=== PATIENT | female | born 1950 | race Asian ===

== ENCOUNTER 2016-10-27 18:22 | Inpatient (IN) | payer MEDICARE, OTHER ==
[~2016-10-27] VITALS: Ht 162.6 cm; Wt 74.0 kg
[2016-10-27 19:05] LABS: CONDITION Y; Hematocrit 36.6 % (36.0-46.0); Hemoglobin 12.4 g/dL (12.2-16.2); Mean Corpuscular Hemoglobin 33.7 pg (28.0-32.0); Mean Corpuscular Hgb Conc. 33.8 g/dL (32.0-36.0); Mean Corpuscular Volume 99.7 fL (80.0-100.0); Platelet Count (auto) 267 10^3/uL (140-450); Red Cell Distribution Width 15.4 % (11.6-16.0); SUSPECT SEE PRINTOUT; White Blood Cell 11.2 10^3/uL (4.4-10.8)
[2016-10-27 19:30] LABS: Metamyelocytes % 0; Myelocytes % 0; Promyelocytes % 0; Reactive Lymphocytes 0
[2016-10-27 19:39] LABS: Albumin 2.1 g/dL (3.4-5.0); Anion Gap 14 (5-15); Aspartate Aminotransferase 95 U/L (15-37); Blood Urea Nitrogen 22 mg/dL (7-18); Calcium 9.3 mg/dL (8.5-10.1); Carbon Dioxide 22 mmol/L (21-32); Chloride 110 mmol/L (98-107); GFR African American 185 mL/min; GFR Non-African American 153 mL/min; Glucose 107 mg/dL (74-106); Potassium 3.1 mmol/L (3.5-5.1); Sodium 146 mmol/L (136-145)
[2016-10-27 19:44] LABS: Alkaline Phosphatase 96 U/L (45-117); Bilirubin, Total 1.1 mg/dL (0.2-1.0); Total Protein 6.9 g/dL (6.4-8.2)
[2016-10-27] MEDS ORDERED: ALBUTEROL SULF 2.5 MG/0.5ML(0.5%) NEB SOLN NEB ONE (19:45)
[2016-10-27] MEDS ORDERED: SODIUM CHLORIDE 0.9% 1,000 ML IV ONE (19:45)
[2016-10-27] MEDS ORDERED: IPRATROPIUM BROM 0.5 MG/2.5ML INH SOL NEB ONE (19:45)
[2016-10-27 20:09] LABS: Platelet Estimate Adequate
[2016-10-27 21:07] LABS: Urine Bilirubin Negative (Negative); Urine Color Yellow (Yellow); Urine Glucose Normal (Normal); Urine Ketone TRACE (Negative); Urine Mucus FEW (None Seen); Urine Nitrite Negative (Negative); Urine RBC 11 /hpf (0 - 4); Urine Squamous Epithelial Cell FEW /hpf (<5)
[2016-10-27 21:09] LABS: Urine Blood 1+ /uL (Negative)
[2016-10-27 21:15] LABS: B-Type Natriuretic Peptide 197.05 pg/mL (0-100)
[2016-10-27 21:22] LABS: Temperature: 23.1 C (20.0-25.0)
[2016-10-27] MEDS ORDERED: cefTRIAXone 1GM/50ML D5W 50 ML IV ONE (21:45)
[2016-10-27] MEDS ORDERED: FUROSEMIDE 20 MG/2 ML VIAL IV ONE (21:45)
[2016-10-27 21:53] LABS: INR 0.96 (0.9-1.15); Partial Thromboplastin Time 29.3 sec (22.64-33.71); Prothrombin Time 10.5 sec (9.37-12.3)
[2016-10-27] MEDS ORDERED: IOHEXOL 350 MG/ML 100ML IJ ONE (23:35)
[2016-10-27] MEDS ORDERED: ACETAMINOPHEN 650 MG RECT SUPP PR ONE (23:38)
[2016-10-27] MEDS: ACETAMINOPHEN 650 MG RECT SUPP PR PRN (23:43)
[2016-10-27] MEDS ORDERED: ENOXAPARIN SOD 80 MG/0.8ML SYRINGE SC ONE (23:45)
[2016-10-27 23:51] LABS: Allen Test Yes; Base Excess -0.4 mmol/L (-2.0-2.0); Blood 02Sat 94.2 % (96-100); Blood COHb 0.4 % (0.5-1.5); Blood MetHb 0.1 % (0.0-1.5); HCO3 21.9 mmol/L (22-26.0); HHb 5.8 % (0.0-5.0); MODE NASAL CANNULA; O2Hb 93.7 % (94.0-97.0); PCO2 29.4 mmHg (35.0-45.0); PCO2(T) 31.7 mmHg (35.0-45.0); PO2 70.5 mmHg (80.0-100.0); PO2(T) 79.1 mmHg (80.0-100.0); Sample Type Arterial
[2016-10-28] VITALS (39 sets, daily range): BP systolic 80–161; BP diastolic 35–88
[2016-10-28] MEDS ORDERED: ONDANSETRON HCL 4 MG/2 ML VIAL IV PRN (01:00)
[2016-10-28] MEDS ORDERED: NITROGLYCERIN 0.4 MG SL TAB SL PRN (01:00)
[2016-10-28] MEDS ORDERED: MORPHINE SULF INJ 2 MG/ML SYRINGE 1ML IV PRN (01:00)
[2016-10-28] MEDS ORDERED: PIPERACILLIN-TAZOB 3.375GM 100 ML IV ONE (01:00)
[2016-10-28] MEDS: VANCOMYCIN 1GM/250ML D5W 250 ML IV SCH ×2 (02:15→13:00)
[2016-10-28] MEDS: POTASSIUM CHL 20MEQ/100ML 100 ML IV SCH ×2 (02:15→04:00)
[2016-10-28] MEDS: PIPERACILLIN-TAZOB 3.375GM 100 ML IV SCH ×2 (07:30→12:11)
[2016-10-28] MEDS ORDERED: ENOXAPARIN SOD 40 MG/0.4 ML SYRINGE SC SCH (10:00)
[2016-10-28] MEDS ORDERED: FAMOTIDINE 20 MG TAB PO SCH (10:00)
[2016-10-28] MEDS ORDERED: PANTOPRAZOLE SODIUM 40 MG/10 ML VIAL IV SCH (12:30)
[2016-10-28 13:28] LABS: Albumin 1.7 g/dL (3.4-5.0); Bilirubin, Total 1.3 mg/dL (0.2-1.0); Lactic Acid w/Reflex 2.2 mmol/L (0.4-2.0); Total Protein 6.3 g/dL (6.4-8.2)
[2016-10-28 13:32] LABS: Potassium 2.8 mmol/L (3.5-5.1)
[2016-10-28] MEDS ORDERED: POTASSIUM CHL 20MEQ/100ML 100 ML IV SCH (13:45)
[2016-10-28] MEDS ORDERED: ETOMIDATE (2MG/ML) 20ML VIAL IV ONE (13:58)
[2016-10-28] MEDS ORDERED: SUCCINYLCHOLINE CHLORIDE 20 MG/ML 10ML VIAL IV ONE (13:58)
[2016-10-28 14:01] LABS: REFLEX LACTIC ACID YES OR NO YES
[2016-10-28 14:09] LABS: Base Excess 0.5 mmol/L (-2.0-2.0); Blood 02Sat 92.4 % (96-100); Blood COHb 0.3 % (0.5-1.5); Blood MetHb 0.2 % (0.0-1.5); HCO3 21.8 mmol/L (22-26.0); HHb 7.6 % (0.0-5.0); MODE NASAL CANNULA; O2Hb 91.9 % (94.0-97.0); PCO2 25.9 mmHg (35.0-45.0); PCO2(T) 25.9 mmHg (35.0-45.0); PO2 61.2 mmHg (80.0-100.0); PO2(T) 61.2 mmHg (80.0-100.0); Sample Type Arterial; pH 7.544 (7.350-7.450)
[2016-10-28] MEDS ORDERED: POTASSIUM CHLORIDE 40 MEQ, LIDOCAINE 1% (LOCAL ANESTH.) 4 ML in SODIUM CHL 0.9% 250 ML IV ONE (14:30)
[2016-10-28] MEDS: PROPOFOL 100 ML IV SCH (14:34)
[2016-10-28] MEDS: MIDAZOLAM DRIP 100 mg/100mL NS 100 ML IV SCH (14:34)
[2016-10-28] MEDS ORDERED: MIDAZOLAM DRIP 100 mg/100mL NS 100 ML IV ONE (14:39)
[2016-10-28] MEDS ORDERED: PANTOPRAZOLE SODIUM 40 MG/10 ML VIAL IV ONE (14:45)
[2016-10-28] MEDS ORDERED: MIDAZOLAM DRIP 100 mg/100mL NS 100 ML IV SCH (14:48)
[2016-10-28] MEDS ORDERED: PROPOFOL 100 ML IV SCH (14:48)
[2016-10-28] MEDS ORDERED: VITAMINS A & D (TOPICAL) OINT 5GM TOP ONE (15:52)
[2016-10-28 16:52] LABS: Allen Test Yes; Base Excess -0.6 mmol/L (-2.0-2.0); Blood 02Sat 97.5 % (96-100); Blood COHb 0.3 % (0.5-1.5); Blood MetHb 0.3 % (0.0-1.5); HCO3 22.4 mmol/L (22-26.0); HHb 2.5 % (0.0-5.0); IE RATIO 1.1.6; MODE VENT - A/C; O2Hb 96.9 % (94.0-97.0); PCO2 31.8 mmHg (35.0-45.0); PCO2(T) 31.8 mmHg (35.0-45.0); PIP 20; PO2 115.2 mmHg (80.0-100.0); PO2(T) 115.2 mmHg (80.0-100.0); Sample Type Arterial; Spont Vt 463; pH 7.466 (7.350-7.450)
[2016-10-28] MEDS: ACETAMINOPHEN 325 MG TAB PO PRN (16:54)
[2016-10-28 17:45] LABS: REFLEX LACTIC ACID YES OR NO NO
[2016-10-28 18:44] LABS: Vitamin B12 > 2000 pg/mL (211-911)
[2016-10-28] MEDS: DEXAMETHASONE SOD PHOS 10MG/1ML VIAL INJ IV SCH (20:00)
[2016-10-28] MEDS ORDERED: D5W 5% 250 ML IV ONE (20:45)
[2016-10-28] MEDS ORDERED: SODIUM CHLORIDE 0.9% 1,000 ML IV SCH (21:00)
[2016-10-28] MEDS: CEFTRIAXONE SODIUM 2 GM in D5W 5% 50 ML IV SCH (21:09)
[2016-10-28] MEDS: PHENYLEPHRINE INJ 20 MG in SODIUM CHL 0.9% 250 ML IV SCH (21:41)
[2016-10-28 21:49] LABS: TUBE NUMBER TUBE 3
[2016-10-28 21:51] LABS: CSF Mononuclear Cells 3 %
[2016-10-28 22:42] LABS: Albumin 1.5 g/dL (3.4-5.0); BUN/Creatinine Ratio 33.8; Potassium 3.4 mmol/L (3.5-5.1)
[2016-10-28 22:44] LABS: Bilirubin, Total 0.9 mg/dL (0.2-1.0); Total Protein 5.9 g/dL (6.4-8.2)
[2016-10-29] VITALS (103 sets, daily range): BP systolic 91–152; BP diastolic 42–78
[2016-10-29] MEDS: VANCOMYCIN 1GM/250ML D5W 250 ML IV SCH ×3 (01:20→21:00)
[2016-10-29] MEDS: ACETAMINOPHEN 325 MG TAB PO PRN (01:20)
[2016-10-29] MEDS: DEXAMETHASONE SOD PHOS 10MG/1ML VIAL INJ IV SCH ×6 (02:00→23:42)
[2016-10-29 03:51] LABS: CONDITION Y; DEFINITIVE SEE PRINTOUT; Hematocrit 27.1 % (36.0-46.0); Hemoglobin 9.3 g/dL (12.2-16.2); Mean Corpuscular Hemoglobin 35.7 pg (28.0-32.0); Mean Corpuscular Hgb Conc. 34.4 g/dL (32.0-36.0); Mean Corpuscular Volume 103.7 fL (80.0-100.0); Mean Platelet Volume 9.9 fL (7.4-10.4); Platelet Count (auto) 199 10^3/uL (140-450); Red Cell Distribution Width 16.1 % (11.6-16.0); SUSPECT SEE PRINTOUT
[2016-10-29 04:04] LABS: Albumin 1.5 g/dL (3.4-5.0); BUN/Creatinine Ratio 40.7; Calcium 8.6 mg/dL (8.5-10.1); Potassium 3.7 mmol/L (3.5-5.1)
[2016-10-29 04:07] LABS: Bilirubin, Total 0.9 mg/dL (0.2-1.0)
[2016-10-29 04:48] LABS: Metamyelocytes % 0; Myelocytes % 0; Promyelocytes % 0; Reactive Lymphocytes 0
[2016-10-29 05:34] LABS: Anisocytosis Slight; Macrocytosis Slight; Platelet Estimate Adequate
[2016-10-29 07:36] LABS: Allen Test Yes; Base Excess 0.8 mmol/L (-2.0-2.0); Blood 02Sat 95.3 % (96-100); Blood COHb 0.3 % (0.5-1.5); Blood MetHb 0.1 % (0.0-1.5); HCO3 24.8 mmol/L (22-26.0); HHb 4.7 % (0.0-5.0); MODE VENT - A/C; O2Hb 94.9 % (94.0-97.0); PCO2 37.4 mmHg (35.0-45.0); PCO2(T) 37.4 mmHg (35.0-45.0); Sample Type Arterial
[2016-10-29] MEDS: CEFTRIAXONE SODIUM 2 GM in D5W 5% 50 ML IV SCH ×2 (09:10→21:47)
[2016-10-29] MEDS: AMPICILLIN SOD 2GM INJ 2 GM in SODIUM CHL 0.9% 100 ML IV SCH ×4 (10:10→22:41)
[2016-10-29] MEDS: PANTOPRAZOLE SODIUM 40 MG/10 ML VIAL IV SCH (10:10)
[2016-10-29] MEDS ORDERED: Fibersource Hn 1 Liter GT SCH (10:45)
[2016-10-29] MEDS ORDERED: ENOXAPARIN SOD 40 MG/0.4 ML SYRINGE SC ONE (10:45)
[2016-10-29] MEDS ORDERED: DEXTROSE (50%) 50ML SYRG IV PRN (10:45)
[2016-10-29] MEDS: SOD CHL 0.45% 1,000 ML IV SCH (12:00)
[2016-10-29] MEDS: ACCU-CHEK COMFORT CURVE STRIP VI SCH ×3 (12:20→23:43)
[2016-10-29] MEDS: InsuLIN REG 1unit/0.01ml Soln (100units/ml) SC SCH ×3 (12:25→23:43)
[2016-10-29] MEDS: PHENYLEPHRINE INJ 20 MG in SODIUM CHL 0.9% 250 ML IV SCH ×2 (14:21→22:41)
[2016-10-29] MEDS: PROPOFOL 100 ML IV SCH (14:34)
[2016-10-29] MEDS: ACETAMINOPHEN 650 MG RECT SUPP PR PRN (14:41)
[2016-10-29] MEDS: MIDAZOLAM DRIP 100 mg/100mL NS 100 ML IV SCH (15:15)
[2016-10-29] MEDS ORDERED: LIDOCAINE 1% HCL (LOCAL ANESTH.) INJ 20ML MDV ID ONE (15:45)
[2016-10-29] MEDS: MORPHINE SULF INJ 2 MG/ML SYRINGE 1ML IV PRN (16:30)
[2016-10-29] MEDS: SODIUM CHLOR 0.9% PF (SALINE LOCK) 10ML VIAL IV SCH (22:08)
[2016-10-30] VITALS (76 sets, daily range): BP systolic 104–127; BP diastolic 41–70
[2016-10-30] MEDS: SOD CHL 0.45% 1,000 ML IV SCH ×2 (00:23→13:25)
[2016-10-30] MEDS: AMPICILLIN SOD 2GM INJ 2 GM in SODIUM CHL 0.9% 100 ML IV SCH ×3 (02:22→10:06)
[2016-10-30 03:54] LABS: CONDITION Y; DEFINITIVE SEE PRINTOUT; Hematocrit 25.6 % (36.0-46.0); Hemoglobin 8.8 g/dL (12.2-16.2); Mean Corpuscular Hemoglobin 35.2 pg (28.0-32.0); Mean Corpuscular Hgb Conc. 34.3 g/dL (32.0-36.0); Mean Corpuscular Volume 102.6 fL (80.0-100.0); Mean Platelet Volume 9.9 fL (7.4-10.4); Platelet Count (auto) 203 10^3/uL (140-450); Red Cell Distribution Width 15.6 % (11.6-16.0); SUSPECT SEE PRINTOUT; White Blood Cell 23.5 10^3/uL (4.4-10.8)
[2016-10-30 04:11] LABS: BUN/Creatinine Ratio 56.1; Potassium 3.6 mmol/L (3.5-5.1)
[2016-10-30] MEDS: VANCOMYCIN 1GM/250ML D5W 250 ML IV SCH ×3 (04:53→21:12)
[2016-10-30 05:02] LABS: Metamyelocytes % 0; Myelocytes % 0; Promyelocytes % 0; Reactive Lymphocytes 0
[2016-10-30] MEDS: ACCU-CHEK COMFORT CURVE STRIP VI SCH ×3 (06:04→18:00)
[2016-10-30] MEDS: DEXAMETHASONE SOD PHOS 10MG/1ML VIAL INJ IV SCH ×3 (06:04→17:46)
[2016-10-30] MEDS: InsuLIN REG 1unit/0.01ml Soln (100units/ml) SC SCH ×3 (06:04→17:54)
[2016-10-30 06:05] LABS: Platelet Estimate Adequate
[2016-10-30 06:06] LABS: Anisocytosis Slight; Macrocytosis Slight
[2016-10-30] MEDS ORDERED: LIDOCAINE W/ EPINEPHRINE 1 % INJ 30ML ONE ×2 (06:46→12:42)
[2016-10-30] MEDS: PHENYLEPHRINE INJ 20 MG in SODIUM CHL 0.9% 250 ML IV SCH (07:01)
[2016-10-30 07:21] LABS: Allen Test Yes; Base Excess 3.4 mmol/L (-2.0-2.0); Blood 02Sat 94.9 % (96-100); Blood COHb 0.6 % (0.5-1.5); Blood MetHb 0.1 % (0.0-1.5); HCO3 26.3 mmol/L (22-26.0); HHb 5.1 % (0.0-5.0); MODE VENT - A/C; O2Hb 94.2 % (94.0-97.0); PO2 78.6 mmHg (80.0-100.0); PO2(T) 78.6 mmHg (80.0-100.0); Sample Type Arterial
[2016-10-30] MEDS: MORPHINE SULF INJ 2 MG/ML SYRINGE 1ML IV PRN (08:11)
[2016-10-30] MEDS: CEFTRIAXONE SODIUM 2 GM in D5W 5% 50 ML IV SCH ×2 (09:15→22:08)
[2016-10-30] MEDS ORDERED: ENOXAPARIN SOD 40 MG/0.4 ML SYRINGE SC SCH (10:00)
[2016-10-30] MEDS: SODIUM CHLOR 0.9% PF (SALINE LOCK) 10ML VIAL IV SCH ×2 (10:07→22:08)
[2016-10-30] MEDS: PANTOPRAZOLE SODIUM 40 MG/10 ML VIAL IV SCH (10:07)
[2016-10-30] MEDS ORDERED: COCAINE HCL 4% TOP SOL 4ML TOP ONE ×2 (12:41→14:45)
[2016-10-30] MEDS ORDERED: ceFAZolin 1GM VL ONE (12:42)
[2016-10-30] MEDS ORDERED: fentaNYL CITRATE 100 MCG/2 ML VL ONE (13:37)
[2016-10-30] MEDS ORDERED: MIDAZOLAM HCL 1MG/1ML-2 ML VIAL ONE ×2 (13:38→14:24)
[2016-10-30] MEDS ORDERED: PROPOFOL 10 MG/ML 20 ML IV ONE (13:38)
[2016-10-30] MEDS ORDERED: ROCURONIUM 10MG/ML 10ML VIAL IV ONE (13:39)
[2016-10-30] MEDS ORDERED: MORPHINE SULFATE 4 MG/ML SYRG IV PRN ×2 (14:10)
[2016-10-30] MEDS: PROPOFOL 100 ML IV SCH (14:34)
[2016-10-30] MEDS ORDERED: LIDOCAINE W/ EPINEPHRINE 1 % INJ 30ML IJ ONE (14:45)
[2016-10-30] MEDS ORDERED: GENTAMICIN OPTH sol 0.3% 5ml OT ONE ×2 (14:45→15:15)
[2016-10-30 16:50] LABS: Basophils # (auto) 0 uL; Basophils % (auto) 0.2 % (0.0-2.0); CONDITION Y; DEFINITIVE SEE PRINTOUT; Eosinophils # (auto) 0 uL; Hematocrit 23.9 % (36.0-46.0); Hemoglobin 8.3 g/dL (12.2-16.2); Lymphocytes # (auto) 1.9 uL; Lymphocytes % (auto) 9.8 % (10.0-50.0); Mean Corpuscular Hemoglobin 34.1 pg (28.0-32.0); Mean Corpuscular Hgb Conc. 34.6 g/dL (32.0-36.0); Mean Corpuscular Volume 98.5 fL (80.0-100.0); Mean Platelet Volume 9.7 fL (7.4-10.4); Monocytes # (auto) 0.8 uL; Monocytes % (auto) 4.4 % (0.0-12.0); Neutrophils # (auto) 16.2 uL; Neutrophils % (auto) 85.6 % (37.0-80.0); Platelet Count (auto) 198 10^3/uL (140-450); Red Cell Distribution Width 15.9 % (11.6-16.0); SUSPECT SEE PRINTOUT; White Blood Cell 18.9 10^3/uL (4.4-10.8)
[2016-10-30] MEDS: MIDAZOLAM DRIP 50 mg/50mL NS 50 ML IV SCH (17:35)
[2016-10-30 17:39] LABS: Platelet Estimate Adequate
[2016-10-30 17:40] LABS: Anisocytosis Slight; Polychromasia Slight; Stomatocytes Few
[2016-10-30] MEDS: FREE WATER GT SCH (18:00)
[2016-10-30] MEDS: GENTAMICIN OPTH sol 0.3% 5ml OT SCH (22:08)
[2016-10-31] VITALS (87 sets, daily range): BP systolic 87–125; BP diastolic 44–67
[2016-10-31] MEDS: SOD CHL 0.45% 1,000 ML IV SCH (01:40)
[2016-10-31] MEDS: VANCOMYCIN 1GM/250ML D5W 250 ML IV SCH ×3 (05:00→21:15)
[2016-10-31] MEDS: FREE WATER GT SCH ×4 (06:00→18:06)
[2016-10-31] MEDS: DEXAMETHASONE SOD PHOS 10MG/1ML VIAL INJ IV SCH ×4 (06:11→18:06)
[2016-10-31] MEDS: InsuLIN REG 1unit/0.01ml Soln (100units/ml) SC SCH ×4 (06:12→18:05)
[2016-10-31] MEDS: GENTAMICIN OPTH sol 0.3% 5ml OT SCH (06:12)
[2016-10-31] MEDS: ACCU-CHEK COMFORT CURVE STRIP VI SCH ×4 (06:12→18:05)
[2016-10-31 06:37] LABS: Calcium 8.7 mg/dL (8.5-10.1); Potassium 3.6 mmol/L (3.5-5.1)
[2016-10-31 08:29] LABS: Basophils # (auto) 0 uL; Basophils % (auto) 0.1 % (0.0-2.0); Eosinophils # (auto) 0 uL; Hematocrit 23.1 % (36.0-46.0); Hemoglobin 7.9 g/dL (12.2-16.2); Lymphocytes # (auto) 1.2 uL; Lymphocytes % (auto) 9.1 % (10.0-50.0); Mean Corpuscular Hemoglobin 34.4 pg (28.0-32.0); Mean Corpuscular Hgb Conc. 34.1 g/dL (32.0-36.0); Monocytes # (auto) 0.7 uL; Monocytes % (auto) 5.3 % (0.0-12.0); Neutrophils # (auto) 11.4 uL; Neutrophils % (auto) 85.5 % (37.0-80.0); Platelet Count (auto) 209 10^3/uL (140-450); Red Cell Distribution Width 15.4 % (11.6-16.0); White Blood Cell 13.4 10^3/uL (4.4-10.8)
[2016-10-31 08:48] LABS: Allen Test Yes; Base Excess 2.3 mmol/L (-2.0-2.0); Blood 02Sat 93.3 % (96-100); Blood COHb 0.3 % (0.5-1.5); Blood MetHb 0.1 % (0.0-1.5); HCO3 25.1 mmol/L (22-26.0); HHb 6.7 % (0.0-5.0); MODE VENT - A/C; O2Hb 92.9 % (94.0-97.0); PCO2 31.2 mmHg (35.0-45.0); PCO2(T) 31.2 mmHg (35.0-45.0); PO2 73.4 mmHg (80.0-100.0); PO2(T) 73.4 mmHg (80.0-100.0); Sample Type Arterial; pH 7.523 (7.350-7.450)
[2016-10-31] MEDS: CEFTRIAXONE SODIUM 2 GM in D5W 5% 50 ML IV SCH ×2 (09:28→22:22)
[2016-10-31] MEDS: PANTOPRAZOLE SODIUM 40 MG/10 ML VIAL IV SCH (09:47)
[2016-10-31] MEDS: SODIUM CHLOR 0.9% PF (SALINE LOCK) 10ML VIAL IV SCH ×2 (09:48→22:23)
[2016-10-31 10:49] LABS: Hematocrit 23.5 % (36.0-46.0); Hemoglobin 8.1 g/dL (12.2-16.2)
[2016-10-31] MEDS ORDERED: GENTAMICIN OPTH sol 0.3% 5ml OT SCH (12:00)
[2016-10-31] MEDS ORDERED: GENTAMICIN OPTH sol 0.3% 5ml LEFT EAR SCH (12:00)
[2016-10-31] MEDS: SALINE 0.65 % NASAL SPRAY 45ML BOTTLE EACHNOSTRI SCH ×3 (12:14→22:23)
[2016-10-31] MEDS: Fibersource Hn 1 Liter GT SCH (13:08)
[2016-10-31] MEDS: POTASSIUM CHLORIDE 20 MEQ in D5W 5% 1,000 ML IV SCH (14:08)
[2016-10-31] MEDS: MIDAZOLAM DRIP 50 mg/50mL NS 50 ML IV SCH (14:08)
[2016-10-31] MEDS: NEOMYCIN-POLYM-HC 1% OTIC(EAR) SOLN 10ML LEFT EAR SCH ×2 (14:08→22:22)
[2016-10-31] MEDS: PROPOFOL 100 ML IV SCH (14:09)
[2016-11-01] VITALS (75 sets, daily range): BP systolic 93–130; BP diastolic 45–83
[2016-11-01] MEDS: FREE WATER GT SCH ×4 (00:17→17:48)
[2016-11-01] MEDS: DEXAMETHASONE SOD PHOS 10MG/1ML VIAL INJ IV SCH (00:17)
[2016-11-01] MEDS: ACCU-CHEK COMFORT CURVE STRIP VI SCH ×4 (00:17→17:48)
[2016-11-01] MEDS: POTASSIUM CHLORIDE 20 MEQ in D5W 5% 1,000 ML IV SCH ×2 (03:40→12:30)
[2016-11-01 04:02] LABS: Basophils # (auto) 0 uL; Basophils % (auto) 0.1 % (0.0-2.0); CONDITION Y; DEFINITIVE SEE PRINTOUT; Eosinophils # (auto) 0 uL; Eosinophils % (auto) 0.2 % (0.0-7.0); Hematocrit 23.5 % (36.0-46.0); Hemoglobin 8.2 g/dL (12.2-16.2); Lymphocytes # (auto) 0.8 uL; Lymphocytes % (auto) 10.7 % (10.0-50.0); Mean Corpuscular Hemoglobin 35.6 pg (28.0-32.0); Mean Corpuscular Hgb Conc. 34.7 g/dL (32.0-36.0); Mean Corpuscular Volume 102.6 fL (80.0-100.0); Mean Platelet Volume 10.4 fL (7.4-10.4); Monocytes # (auto) 0.2 uL; Monocytes % (auto) 2.5 % (0.0-12.0); Neutrophils # (auto) 6.6 uL; Neutrophils % (auto) 86.5 % (37.0-80.0); Nucleated Red Blood Cells % 2.2 %; Platelet Count (auto) 238 10^3/uL (140-450); Red Cell Distribution Width 15.4 % (11.6-16.0); SUSPECT SEE PRINTOUT; White Blood Cell 7.6 10^3/uL (4.4-10.8)
[2016-11-01 04:04] LABS: Calcium 8.6 mg/dL (8.5-10.1); Potassium 4.4 mmol/L (3.5-5.1)
[2016-11-01] MEDS: VANCOMYCIN 1GM/250ML D5W 250 ML IV SCH ×3 (05:00→21:10)
[2016-11-01] MEDS: NEOMYCIN-POLYM-HC 1% OTIC(EAR) SOLN 10ML LEFT EAR SCH ×3 (06:00→22:25)
[2016-11-01] MEDS: InsuLIN REG 1unit/0.01ml Soln (100units/ml) SC SCH ×4 (06:00→18:00)
[2016-11-01] MEDS: SALINE 0.65 % NASAL SPRAY 45ML BOTTLE EACHNOSTRI SCH ×4 (06:00→21:13)
[2016-11-01] MEDS: CEFTRIAXONE SODIUM 2 GM in D5W 5% 50 ML IV SCH ×2 (09:30→21:09)
[2016-11-01] MEDS: PANTOPRAZOLE SODIUM 40 MG/10 ML VIAL IV SCH (09:49)
[2016-11-01] MEDS: SODIUM CHLOR 0.9% PF (SALINE LOCK) 10ML VIAL IV SCH ×2 (09:49→21:10)
[2016-11-01 10:24] LABS: Allen Test Modified; Base Excess 8.2 mmol/L (-2.0-2.0); Blood 02Sat 92.8 % (96-100); Blood COHb 0.3 % (0.5-1.5); Blood MetHb 0.6 % (0.0-1.5); HCO3 32.6 mmol/L (22-26.0); HHb 7.1 % (0.0-5.0); MODE VENT - A/C; PCO2 45.4 mmHg (35.0-45.0); PCO2(T) 45.4 mmHg (35.0-45.0); PO2 68.6 mmHg (80.0-100.0); PO2(T) 68.6 mmHg (80.0-100.0); Sample Type Arterial; pH 7.474 (7.350-7.450)
[2016-11-01] MEDS: MIDAZOLAM DRIP 50 mg/50mL NS 50 ML IV SCH (14:12)
[2016-11-01] MEDS: METOCLOPRAMIDE HCL 5MG/ml INJ 2ml VIAL IV SCH ×2 (14:30→21:10)
[2016-11-01] MEDS: PROPOFOL 100 ML IV SCH (14:34)
[2016-11-01 18:06] LABS: HSV-1 DNA CSF Negative (Negative)
[2016-11-02] VITALS (36 sets, daily range): BP systolic 91–124; BP diastolic 42–80
[2016-11-02] MEDS: ACCU-CHEK COMFORT CURVE STRIP VI SCH ×4 (00:14→17:41)
[2016-11-02] MEDS: InsuLIN REG 1unit/0.01ml Soln (100units/ml) SC SCH ×4 (00:14→17:41)
[2016-11-02 04:31] LABS: Basophils # (auto) 0 uL; Basophils % (auto) 0.1 % (0.0-2.0); CONDITION Y; Eosinophils # (auto) 0 uL; Eosinophils % (auto) 0.1 % (0.0-7.0); Hematocrit 24.9 % (36.0-46.0); Hemoglobin 8.9 g/dL (12.2-16.2); Lymphocytes # (auto) 1.1 uL; Lymphocytes % (auto) 10.3 % (10.0-50.0); Mean Corpuscular Hgb Conc. 35.7 g/dL (32.0-36.0); Mean Corpuscular Volume 101.1 fL (80.0-100.0); Mean Platelet Volume 10.1 fL (7.4-10.4); Monocytes # (auto) 0.1 uL; Monocytes % (auto) 0.8 % (0.0-12.0); Neutrophils # (auto) 9.9 uL; Neutrophils % (auto) 88.7 % (37.0-80.0); Platelet Count (auto) 305 10^3/uL (140-450); Red Cell Distribution Width 15.3 % (11.6-16.0); SUSPECT SEE PRINTOUT; White Blood Cell 11.1 10^3/uL (4.4-10.8)
[2016-11-02 04:44] LABS: BUN/Creatinine Ratio 54.1; Calcium 8.6 mg/dL (8.5-10.1); Potassium 3.7 mmol/L (3.5-5.1)
[2016-11-02] MEDS: VANCOMYCIN 1GM/250ML D5W 250 ML IV SCH ×2 (05:47→13:01)
[2016-11-02] MEDS: SALINE 0.65 % NASAL SPRAY 45ML BOTTLE EACHNOSTRI SCH ×4 (05:47→22:00)
[2016-11-02] MEDS: METOCLOPRAMIDE HCL 5MG/ml INJ 2ml VIAL IV SCH ×3 (05:47→22:00)
[2016-11-02] MEDS: FREE WATER GT SCH ×4 (05:47→17:40)
[2016-11-02] MEDS: NEOMYCIN-POLYM-HC 1% OTIC(EAR) SOLN 10ML LEFT EAR SCH ×3 (05:48→22:00)
[2016-11-02 07:38] LABS: Base Excess 3.3 mmol/L (-2.0-2.0); Blood 02Sat 93.2 % (96-100); Blood COHb 0.3 % (0.5-1.5); HCO3 26.2 mmol/L (22-26.0); HHb 6.8 % (0.0-5.0); MODE VENT - A/C; O2Hb 92.9 % (94.0-97.0); PCO2 33.6 mmHg (35.0-45.0); PCO2(T) 33.6 mmHg (35.0-45.0); PO2 73.3 mmHg (80.0-100.0); PO2(T) 73.3 mmHg (80.0-100.0); Sample Type Arterial
[2016-11-02] MEDS: CEFTRIAXONE SODIUM 2 GM in D5W 5% 50 ML IV SCH ×2 (09:20→21:00)
[2016-11-02] MEDS: SODIUM CHLOR 0.9% PF (SALINE LOCK) 10ML VIAL IV SCH ×2 (10:23→22:00)
[2016-11-02] MEDS: PANTOPRAZOLE SODIUM 40 MG/10 ML VIAL IV SCH (10:37)
[2016-11-02 11:59] LABS: Albumin 1.5 g/dL (3.4-5.0); BUN/Creatinine Ratio 55.9; Calcium 8.2 mg/dL (8.5-10.1); Potassium 3.5 mmol/L (3.5-5.1)
[2016-11-02 12:02] LABS: Bilirubin, Total 0.4 mg/dL (0.2-1.0); Total Protein 5.2 g/dL (6.4-8.2)
[2016-11-02] MEDS: POTASSIUM CHLORIDE 20 MEQ in D5W 5% 1,000 ML IV SCH (13:00)
[2016-11-02] MEDS: Fibersource Hn 1 Liter GT SCH (13:00)
[2016-11-02] MEDS: MIDAZOLAM DRIP 50 mg/50mL NS 50 ML IV SCH (14:12)
[2016-11-02] MEDS: PROPOFOL 100 ML IV SCH (14:34)
[2016-11-02] MEDS: VANCOMYCIN 1,250 MG in D5W 5% 250 ML IV SCH (21:00)
[2016-11-03] VITALS (54 sets, daily range): BP systolic 81–167; BP diastolic 35–83
[2016-11-03] MEDS: InsuLIN REG 1unit/0.01ml Soln (100units/ml) SC SCH ×5 (06:00→23:14)
[2016-11-03] MEDS: POTASSIUM CHLORIDE 20 MEQ in D5W 5% 1,000 ML IV SCH (06:15)
[2016-11-03] MEDS: FREE WATER GT SCH ×5 (06:22→23:13)
[2016-11-03] MEDS: SALINE 0.65 % NASAL SPRAY 45ML BOTTLE EACHNOSTRI SCH ×4 (06:22→22:00)
[2016-11-03] MEDS: NEOMYCIN-POLYM-HC 1% OTIC(EAR) SOLN 10ML LEFT EAR SCH ×3 (06:22→22:00)
[2016-11-03] MEDS: METOCLOPRAMIDE HCL 5MG/ml INJ 2ml VIAL IV SCH ×3 (06:22→22:00)
[2016-11-03] MEDS: ACCU-CHEK COMFORT CURVE STRIP VI SCH ×5 (06:23→23:13)
[2016-11-03 06:41] LABS: Basophils # (auto) 0.1 uL; Basophils % (auto) 0.4 % (0.0-2.0); CONDITION Y; Eosinophils # (auto) 0.1 uL; Eosinophils % (auto) 0.6 % (0.0-7.0); Hemoglobin 9.3 g/dL (12.2-16.2); Lymphocytes # (auto) 1.7 uL; Lymphocytes % (auto) 8.5 % (10.0-50.0); Mean Corpuscular Hemoglobin 35.9 pg (28.0-32.0); Mean Corpuscular Hgb Conc. 35.8 g/dL (32.0-36.0); Mean Corpuscular Volume 100.3 fL (80.0-100.0); Mean Platelet Volume 9.3 fL (7.4-10.4); Monocytes # (auto) 0 uL; Monocytes % (auto) 0.2 % (0.0-12.0); Neutrophils # (auto) 17.6 uL; Neutrophils % (auto) 90.3 % (37.0-80.0); Platelet Count (auto) 386 10^3/uL (140-450); Red Cell Distribution Width 14.7 % (11.6-16.0); SUSPECT SEE PRINTOUT; White Blood Cell 19.5 10^3/uL (4.4-10.8)
[2016-11-03 06:44] LABS: BUN/Creatinine Ratio 40.5; Calcium 8.3 mg/dL (8.5-10.1); Potassium 3.7 mmol/L (3.5-5.1)
[2016-11-03] MEDS: ACETAMINOPHEN 650 MG RECT SUPP PR PRN (07:44)
[2016-11-03] MEDS: CEFTRIAXONE SODIUM 2 GM in D5W 5% 50 ML IV SCH ×2 (08:54→21:00)
[2016-11-03] MEDS: VANCOMYCIN 1,250 MG in D5W 5% 250 ML IV SCH ×2 (09:40→21:00)
[2016-11-03] MEDS: PANTOPRAZOLE SODIUM 40 MG/10 ML VIAL IV SCH (10:30)
[2016-11-03] MEDS: SODIUM CHLOR 0.9% PF (SALINE LOCK) 10ML VIAL IV SCH ×2 (10:30→22:00)
[2016-11-03] MEDS: PROPOFOL 100 ML IV SCH ×2 (12:45→14:34)
[2016-11-03] MEDS: MIDAZOLAM DRIP 50 mg/50mL NS 50 ML IV SCH (14:12)
[2016-11-03] MEDS ORDERED: ACETAMINOPHEN 650 mg PER 20 mL UD ONE (14:13)
[2016-11-03] MEDS: NOREPINEPHRINE BITARTRATE 250 ML IV SCH (15:30)
[2016-11-04] VITALS (92 sets, daily range): BP systolic 83–138; BP diastolic 31–97
[2016-11-04 05:20] LABS: CONDITION Y; DEFINITIVE SEE PRINTOUT; Hematocrit 24.5 % (36.0-46.0); Hemoglobin 8.5 g/dL (12.2-16.2); Mean Corpuscular Hgb Conc. 34.5 g/dL (32.0-36.0); Mean Corpuscular Volume 104.4 fL (80.0-100.0); Mean Platelet Volume 9.2 fL (7.4-10.4); Platelet Count (auto) 377 10^3/uL (140-450); SUSPECT SEE PRINTOUT; White Blood Cell 15.9 10^3/uL (4.4-10.8)
[2016-11-04 05:31] LABS: Metamyelocytes % 0; Myelocytes % 0; Promyelocytes % 0; Reactive Lymphocytes 0
[2016-11-04 05:37] LABS: Albumin 1.4 g/dL (3.4-5.0); Calcium 8.1 mg/dL (8.5-10.1); Potassium 3.6 mmol/L (3.5-5.1)
[2016-11-04 05:41] LABS: BUN/Creatinine Ratio 37.9; Bilirubin, Total 0.6 mg/dL (0.2-1.0); Total Protein 5.5 g/dL (6.4-8.2)
[2016-11-04] MEDS: InsuLIN REG 1unit/0.01ml Soln (100units/ml) SC SCH ×3 (06:25→17:44)
[2016-11-04] MEDS: NEOMYCIN-POLYM-HC 1% OTIC(EAR) SOLN 10ML LEFT EAR SCH ×3 (06:25→22:30)
[2016-11-04] MEDS: METOCLOPRAMIDE HCL 5MG/ml INJ 2ml VIAL IV SCH ×3 (06:25→22:30)
[2016-11-04] MEDS: FREE WATER GT SCH ×3 (06:25→17:44)
[2016-11-04] MEDS: SALINE 0.65 % NASAL SPRAY 45ML BOTTLE EACHNOSTRI SCH ×4 (06:25→22:30)
[2016-11-04] MEDS: ACCU-CHEK COMFORT CURVE STRIP VI SCH ×3 (06:25→17:44)
[2016-11-04 06:29] LABS: Macrocytosis Slight; Platelet Estimate Adequate
[2016-11-04 06:30] LABS: Anisocytosis Slight
[2016-11-04] MEDS: CEFTRIAXONE SODIUM 2 GM in D5W 5% 50 ML IV SCH ×2 (08:36→21:20)
[2016-11-04] MEDS: POTASSIUM CHLORIDE 20 MEQ in D5W 5% 1,000 ML IV SCH ×2 (08:36→20:29)
[2016-11-04] MEDS: VANCOMYCIN 1,250 MG in D5W 5% 250 ML IV SCH ×2 (09:24→20:28)
[2016-11-04] MEDS: PANTOPRAZOLE SODIUM 40 MG/10 ML VIAL IV SCH (09:24)
[2016-11-04] MEDS: SODIUM CHLOR 0.9% PF (SALINE LOCK) 10ML VIAL IV SCH ×2 (09:24→22:30)
[2016-11-04] MEDS: MIDAZOLAM DRIP 50 mg/50mL NS 50 ML IV SCH (14:08)
[2016-11-04] MEDS: PROPOFOL 100 ML IV SCH ×2 (16:12→20:30)
[2016-11-04] MEDS: NOREPINEPHRINE BITARTRATE 250 ML IV SCH (21:00)
[2016-11-05] VITALS (107 sets, daily range): BP systolic 93–138; BP diastolic 35–82
[2016-11-05 03:56] LABS: Basophils # (auto) 0 uL; Basophils % (auto) 0.2 % (0.0-2.0); CONDITION Y; DEFINITIVE SEE PRINTOUT; Eosinophils # (auto) 0.1 uL; Eosinophils % (auto) 1.1 % (0.0-7.0); Hematocrit 23.3 % (36.0-46.0); Hemoglobin 8.4 g/dL (12.2-16.2); Lymphocytes # (auto) 0.6 uL; Lymphocytes % (auto) 4.5 % (10.0-50.0); Mean Corpuscular Hemoglobin 36.8 pg (28.0-32.0); Mean Corpuscular Hgb Conc. 35.8 g/dL (32.0-36.0); Mean Corpuscular Volume 102.9 fL (80.0-100.0); Mean Platelet Volume 9.5 fL (7.4-10.4); Monocytes # (auto) 0.5 uL; Monocytes % (auto) 3.6 % (0.0-12.0); Neutrophils # (auto) 11.4 uL; Neutrophils % (auto) 90.6 % (37.0-80.0); Platelet Count (auto) 401 10^3/uL (140-450); Red Cell Distribution Width 14.9 % (11.6-16.0); SUSPECT SEE PRINTOUT; White Blood Cell 12.5 10^3/uL (4.4-10.8)
[2016-11-05 04:19] LABS: Albumin 1.4 g/dL (3.4-5.0); Calcium 7.7 mg/dL (8.5-10.1)
[2016-11-05 04:22] LABS: BUN/Creatinine Ratio 28.1; Total Protein 5.3 g/dL (6.4-8.2)
[2016-11-05 04:25] LABS: Bilirubin, Total 0.7 mg/dL (0.2-1.0)
[2016-11-05] MEDS: ACCU-CHEK COMFORT CURVE STRIP VI SCH ×4 (06:00→17:27)
[2016-11-05] MEDS: FREE WATER GT SCH ×4 (06:00→17:27)
[2016-11-05] MEDS: InsuLIN REG 1unit/0.01ml Soln (100units/ml) SC SCH ×4 (06:00→17:29)
[2016-11-05 06:11] LABS: Potassium 4.8 mmol/L (3.5-5.1)
[2016-11-05] MEDS: VANCOMYCIN 1,250 MG in D5W 5% 250 ML IV SCH ×2 (07:01→15:00)
[2016-11-05] MEDS: SALINE 0.65 % NASAL SPRAY 45ML BOTTLE EACHNOSTRI SCH ×4 (07:01→22:19)
[2016-11-05] MEDS: METOCLOPRAMIDE HCL 5MG/ml INJ 2ml VIAL IV SCH ×3 (07:01→22:18)
[2016-11-05] MEDS: NEOMYCIN-POLYM-HC 1% OTIC(EAR) SOLN 10ML LEFT EAR SCH ×3 (07:01→22:19)
[2016-11-05] MEDS: CEFTRIAXONE SODIUM 2 GM in D5W 5% 50 ML IV SCH ×2 (09:04→21:23)
[2016-11-05] MEDS: SODIUM CHLOR 0.9% PF (SALINE LOCK) 10ML VIAL IV SCH ×2 (09:23→22:19)
[2016-11-05] MEDS: PANTOPRAZOLE SODIUM 40 MG/10 ML VIAL IV SCH (09:23)
[2016-11-05] MEDS: ALBUMIN 25% 100 ML IV SCH ×2 (10:58→11:53)
[2016-11-05 13:49] LABS: Potassium 3.6 mmol/L (3.5-5.1)
[2016-11-05 13:50] LABS: BUN/Creatinine Ratio 31.8; Calcium 8.5 mg/dL (8.5-10.1)
[2016-11-05] MEDS: MIDAZOLAM DRIP 50 mg/50mL NS 50 ML IV SCH (14:12)
[2016-11-05] MEDS: POTASSIUM CHLORIDE 20 MEQ in D5W 5% 1,000 ML IV SCH (17:27)
[2016-11-05] MEDS: NOREPINEPHRINE BITARTRATE 250 ML IV SCH (21:28)
[2016-11-06] VITALS (104 sets, daily range): BP systolic 80–186; BP diastolic 33–111
[2016-11-06] MEDS: ACCU-CHEK COMFORT CURVE STRIP VI SCH ×4 (00:34→18:00)
[2016-11-06] MEDS: PROPOFOL 100 ML IV SCH ×2 (00:34→08:08)
[2016-11-06] MEDS: InsuLIN REG 1unit/0.01ml Soln (100units/ml) SC SCH ×4 (00:34→18:30)
[2016-11-06] MEDS: VANCOMYCIN 1,250 MG in D5W 5% 250 ML IV SCH ×2 (02:23→11:22)
[2016-11-06 03:37] LABS: Basophils # (auto) 0 uL; Basophils % (auto) 0.3 % (0.0-2.0); CONDITION Y; DEFINITIVE SEE PRINTOUT; Eosinophils # (auto) 0.1 uL; Hemoglobin 7.8 g/dL (12.2-16.2); Lymphocytes # (auto) 0.4 uL; Lymphocytes % (auto) 4.1 % (10.0-50.0); Mean Corpuscular Hemoglobin 35.2 pg (28.0-32.0); Mean Corpuscular Hgb Conc. 35.2 g/dL (32.0-36.0); Mean Platelet Volume 8.2 fL (7.4-10.4); Monocytes # (auto) 0.5 uL; Monocytes % (auto) 5.3 % (0.0-12.0); Neutrophils # (auto) 9.1 uL; Neutrophils % (auto) 89.3 % (37.0-80.0); Platelet Count (auto) 478 10^3/uL (140-450); Red Cell Distribution Width 14.2 % (11.6-16.0); White Blood Cell 10.2 10^3/uL (4.4-10.8)
[2016-11-06 04:04] LABS: BUN/Creatinine Ratio 31.8; Calcium 8.3 mg/dL (8.5-10.1); Potassium 3.2 mmol/L (3.5-5.1)
[2016-11-06] MEDS: METOCLOPRAMIDE HCL 5MG/ml INJ 2ml VIAL IV SCH ×3 (05:47→21:33)
[2016-11-06] MEDS: NEOMYCIN-POLYM-HC 1% OTIC(EAR) SOLN 10ML LEFT EAR SCH ×3 (05:48→21:34)
[2016-11-06] MEDS: SALINE 0.65 % NASAL SPRAY 45ML BOTTLE EACHNOSTRI SCH ×4 (05:49→21:34)
[2016-11-06] MEDS: FREE WATER GT SCH ×4 (05:49→18:40)
[2016-11-06] MEDS ORDERED: POTASSIUM CHL 10% (20 MEQ/15ML) ORAL SOLN GT ONE ×2 (06:30→11:45)
[2016-11-06 06:35] LABS: Allen Test Modified; Blood 02Sat 95.9 % (96-100); Blood COHb 0.3 % (0.5-1.5); Blood MetHb 0.1 % (0.0-1.5); HCO3 24.7 mmol/L (22-26.0); HHb 4.1 % (0.0-5.0); MODE VENT - A/C; O2Hb 95.5 % (94.0-97.0); PCO2 35.1 mmHg (35.0-45.0); PCO2(T) 35.1 mmHg (35.0-45.0); PO2 93.7 mmHg (80.0-100.0); PO2(T) 93.7 mmHg (80.0-100.0); Sample Type Arterial; pH 7.465 (7.350-7.450)
[2016-11-06 08:06] LABS: CAP Mandated Reflex to Culture Not Indicated (.)
[2016-11-06] MEDS: CEFTRIAXONE SODIUM 2 GM in D5W 5% 50 ML IV SCH ×2 (10:14→21:30)
[2016-11-06] MEDS: PANTOPRAZOLE SODIUM 40 MG/10 ML VIAL IV SCH (10:14)
[2016-11-06] MEDS: SODIUM CHLOR 0.9% PF (SALINE LOCK) 10ML VIAL IV SCH ×2 (10:23→21:34)
[2016-11-06 11:35] LABS: Hemoglobin 8.3 g/dL (12.2-16.2)
[2016-11-06] MEDS ORDERED: MORPHINE SULFATE 4 MG/ML SYRG IV PRN ×2 (11:45)
[2016-11-06] MEDS ORDERED: FUROSEMIDE 20 MG/2 ML VIAL IV ONE (11:45)
[2016-11-06] MEDS ORDERED: LORazepam 2MG/ML-1ML VIAL IV PRN (11:45)
[2016-11-06] MEDS ORDERED: MIDAZOLAM DRIP 50 mg/50mL NS 50 ML IV SCH (14:12)
[2016-11-06] MEDS: NOREPINEPHRINE BITARTRATE 250 ML IV SCH (14:45)
[2016-11-06] MEDS ORDERED: POTASSIUM CHL 10% (20 MEQ/15ML) ORAL SOLN ONE (16:23)
[2016-11-06] MEDS: VANCOMYCIN 1GM/250ML D5W 250 ML IV SCH (21:34)
[2016-11-07] VITALS (81 sets, daily range): BP systolic 69–173; BP diastolic 31–112
[2016-11-07] MEDS: ACCU-CHEK COMFORT CURVE STRIP VI SCH ×4 (00:40→18:00)
[2016-11-07] MEDS: InsuLIN REG 1unit/0.01ml Soln (100units/ml) SC SCH ×4 (00:40→18:00)
[2016-11-07 04:11] LABS: CONDITION Y; DEFINITIVE SEE PRINTOUT; Hematocrit 23.8 % (36.0-46.0); Hemoglobin 8.3 g/dL (12.2-16.2); Mean Corpuscular Hemoglobin 35.2 pg (28.0-32.0); Mean Corpuscular Hgb Conc. 34.7 g/dL (32.0-36.0); Mean Corpuscular Volume 101.5 fL (80.0-100.0); Mean Platelet Volume 8.4 fL (7.4-10.4); Platelet Count (auto) 542 10^3/uL (140-450); Red Cell Distribution Width 14.8 % (11.6-16.0); SUSPECT SEE PRINTOUT; White Blood Cell 11.7 10^3/uL (4.4-10.8)
[2016-11-07 04:12] LABS: BUN/Creatinine Ratio 36.8; Calcium 8.6 mg/dL (8.5-10.1); Potassium 3.3 mmol/L (3.5-5.1)
[2016-11-07 04:43] LABS: Metamyelocytes % 0; Myelocytes % 0
[2016-11-07 05:21] LABS: Anisocytosis Slight; Platelet Estimate Increased; Promyelocytes % 1; Reactive Lymphocytes 2
[2016-11-07] MEDS: NEOMYCIN-POLYM-HC 1% OTIC(EAR) SOLN 10ML LEFT EAR SCH (06:00)
[2016-11-07] MEDS: SALINE 0.65 % NASAL SPRAY 45ML BOTTLE EACHNOSTRI SCH ×4 (06:00→22:03)
[2016-11-07] MEDS: FREE WATER GT SCH ×4 (06:00→18:45)
[2016-11-07] MEDS: METOCLOPRAMIDE HCL 5MG/ml INJ 2ml VIAL IV SCH (06:00)
[2016-11-07] MEDS: VANCOMYCIN 1GM/250ML D5W 250 ML IV SCH ×2 (07:58→18:45)
[2016-11-07 08:51] LABS: Allen Test Modified; Blood COHb 0.4 % (0.5-1.5); Blood MetHb 0.2 % (0.0-1.5); HCO3 26.3 mmol/L (22-26.0); MODE VENT - A/C; O2Hb 95.4 % (94.0-97.0); PCO2 35.1 mmHg (35.0-45.0); PCO2(T) 35.4 mmHg (35.0-45.0); PO2 88.1 mmHg (80.0-100.0); PO2(T) 89.2 mmHg (80.0-100.0); Sample Type Arterial; pH 7.493 (7.350-7.450)
[2016-11-07] MEDS: CEFTRIAXONE SODIUM 2 GM in D5W 5% 50 ML IV SCH ×2 (09:17→22:00)
[2016-11-07] MEDS: PANTOPRAZOLE SODIUM 40 MG/10 ML VIAL IV SCH (09:47)
[2016-11-07] MEDS: SODIUM CHLOR 0.9% PF (SALINE LOCK) 10ML VIAL IV SCH ×2 (10:00→22:04)
[2016-11-07] MEDS ORDERED: FUROSEMIDE 20 MG/2 ML VIAL ONE ×2 (11:04→13:03)
[2016-11-07] MEDS ORDERED: FUROSEMIDE 20 MG/2 ML VIAL IV ONE ×2 (11:15→13:15)
[2016-11-07] MEDS: POTASSIUM CHL 20MEQ/100ML 100 ML IV SCH ×2 (12:15→13:45)
[2016-11-07 12:37] LABS: Allen Test Modified; Base Excess 4.9 mmol/L (-2.0-2.0); Blood 02Sat 95.7 % (96-100); Blood COHb 0.6 % (0.5-1.5); Blood MetHb 0.1 % (0.0-1.5); HCO3 28.1 mmol/L (22-26.0); HHb 4.3 % (0.0-5.0); MODE VENT - CPAP; PCO2 36.5 mmHg (35.0-45.0); PCO2(T) 36.5 mmHg (35.0-45.0); PO2 84.4 mmHg (80.0-100.0); PO2(T) 84.4 mmHg (80.0-100.0); Pressure Support 8; Sample Type Arterial; Spont Vt 356; pH 7.505 (7.350-7.450)
[2016-11-07] MEDS ORDERED: POTASSIUM CHL 20MEQ/100ML 100 ML IV ONE (13:15)
[2016-11-07] MEDS ORDERED: EPINEPHrine HCL 0.5 ML NEB ONE (14:06)
[2016-11-07] MEDS ORDERED: DEXAMETHASONE SOD PHOS 4 MG/1ML SDV INJ ONE (14:09)
[2016-11-07] MEDS ORDERED: ETOMIDATE (2MG/ML) 20ML VIAL IV ONE (14:21)
[2016-11-07] MEDS ORDERED: SUCCINYLCHOLINE CHLORIDE 20 MG/ML 10ML VIAL IV ONE (14:21)
[2016-11-07] MEDS ORDERED: PROPOFOL 100 ML IV ONE (14:21)
[2016-11-07] MEDS ORDERED: MIDAZOLAM HCL 1MG/1ML-2 ML VIAL ONE (14:21)
[2016-11-07] MEDS ORDERED: EPINEPHrine HCL 0.5 ML NEB NEB ONE (14:30)
[2016-11-07] MEDS ORDERED: DEXAMETHASONE SOD PHOS 4 MG/1ML SDV INJ IM ONE (14:30)
[2016-11-07] MEDS ORDERED: NOREPINEPHRINE BITARTRATE 250 ML IV ONE (14:39)
[2016-11-07] MEDS: PROPOFOL 100 ML IV SCH (15:00)
[2016-11-07] MEDS: DEXAMETHASONE SOD PHOS 4 MG/1ML SDV INJ IV SCH (22:04)
[2016-11-08] VITALS (88 sets, daily range): BP systolic 86–142; BP diastolic 38–69
[2016-11-08] MEDS: ACCU-CHEK COMFORT CURVE STRIP VI SCH ×4 (00:30→18:26)
[2016-11-08] MEDS: InsuLIN REG 1unit/0.01ml Soln (100units/ml) SC SCH ×4 (00:38→18:00)
[2016-11-08 03:34] LABS: Basophils # (auto) 0 uL; Basophils % (auto) 0.1 % (0.0-2.0); CONDITION Y; DEFINITIVE SEE PRINTOUT; Eosinophils # (auto) 0.1 uL; Eosinophils % (auto) 0.8 % (0.0-7.0); Hematocrit 24.5 % (36.0-46.0); Hemoglobin 8.3 g/dL (12.2-16.2); Lymphocytes # (auto) 0.5 uL; Lymphocytes % (auto) 4.1 % (10.0-50.0); Mean Corpuscular Hemoglobin 33.8 pg (28.0-32.0); Mean Corpuscular Hgb Conc. 33.8 g/dL (32.0-36.0); Mean Corpuscular Volume 99.8 fL (80.0-100.0); Mean Platelet Volume 8.1 fL (7.4-10.4); Monocytes # (auto) 0.6 uL; Neutrophils # (auto) 11.5 uL; Platelet Count (auto) 596 10^3/uL (140-450); Red Cell Distribution Width 14.9 % (11.6-16.0); White Blood Cell 12.7 10^3/uL (4.4-10.8)
[2016-11-08] MEDS: VANCOMYCIN 1GM/250ML D5W 250 ML IV SCH ×2 (03:40→14:30)
[2016-11-08 03:59] LABS: Albumin 2.1 g/dL (3.4-5.0); BUN/Creatinine Ratio 34.5; Calcium 8.9 mg/dL (8.5-10.1); Potassium 3.8 mmol/L (3.5-5.1)
[2016-11-08 04:02] LABS: Bilirubin, Total 0.9 mg/dL (0.2-1.0); Total Protein 5.9 g/dL (6.4-8.2)
[2016-11-08] MEDS: SALINE 0.65 % NASAL SPRAY 45ML BOTTLE EACHNOSTRI SCH ×4 (06:00→21:54)
[2016-11-08] MEDS: FREE WATER GT SCH ×3 (06:00→11:36)
[2016-11-08] MEDS: CEFTRIAXONE SODIUM 2 GM in D5W 5% 50 ML IV SCH ×2 (08:53→21:54)
[2016-11-08] MEDS: PANTOPRAZOLE SODIUM 40 MG/10 ML VIAL IV SCH (09:36)
[2016-11-08] MEDS: DEXAMETHASONE SOD PHOS 4 MG/1ML SDV INJ IV SCH ×2 (09:37→21:54)
[2016-11-08] MEDS: SODIUM CHLOR 0.9% PF (SALINE LOCK) 10ML VIAL IV SCH ×2 (09:37→21:54)
[2016-11-08] MEDS: METOCLOPRAMIDE HCL 5MG/ml INJ 2ml VIAL IV SCH ×2 (14:30→21:54)
[2016-11-08] MEDS: PROPOFOL 100 ML IV SCH (15:10)
[2016-11-08] MEDS: NEOMYCIN-POLYM-HC 1% OTIC(EAR) SOLN 10ML EACH EAR SCH (21:53)
[2016-11-09] VITALS (105 sets, daily range): BP systolic 87–153; BP diastolic 31–71
[2016-11-09] MEDS: NEOMYCIN-POLYM-HC 1% OTIC(EAR) SOLN 10ML EACH EAR SCH ×5 (06:26→23:32)
[2016-11-09] MEDS: SALINE 0.65 % NASAL SPRAY 45ML BOTTLE EACHNOSTRI SCH ×4 (06:26→21:54)
[2016-11-09] MEDS: METOCLOPRAMIDE HCL 5MG/ml INJ 2ml VIAL IV SCH ×3 (06:26→21:53)
[2016-11-09] MEDS: InsuLIN REG 1unit/0.01ml Soln (100units/ml) SC SCH ×5 (06:27→23:33)
[2016-11-09] MEDS: ACCU-CHEK COMFORT CURVE STRIP VI SCH ×5 (06:27→23:32)
[2016-11-09 07:11] LABS: Basophils # (auto) 0 uL; Basophils % (auto) 0.2 % (0.0-2.0); CONDITION Y; DEFINITIVE SEE PRINTOUT; Eosinophils # (auto) 0.1 uL; Eosinophils % (auto) 1.2 % (0.0-7.0); Hematocrit 23.5 % (36.0-46.0); Lymphocytes # (auto) 0.7 uL; Mean Corpuscular Hemoglobin 34.5 pg (28.0-32.0); Mean Corpuscular Hgb Conc. 33.9 g/dL (32.0-36.0); Mean Corpuscular Volume 101.7 fL (80.0-100.0); Mean Platelet Volume 8.4 fL (7.4-10.4); Monocytes # (auto) 1.3 uL; Monocytes % (auto) 11.4 % (0.0-12.0); Neutrophils % (auto) 81.2 % (37.0-80.0); Platelet Count (auto) 624 10^3/uL (140-450); Potassium 3.1 mmol/L (3.5-5.1); Red Cell Distribution Width 15.3 % (11.6-16.0)
[2016-11-09 07:18] LABS: Calcium 8.5 mg/dL (8.5-10.1)
[2016-11-09] MEDS: CEFTRIAXONE SODIUM 2 GM in D5W 5% 50 ML IV SCH ×2 (09:21→20:17)
[2016-11-09] MEDS: VANCOMYCIN 1GM/250ML D5W 250 ML IV SCH ×3 (10:12→20:17)
[2016-11-09] MEDS: DEXAMETHASONE SOD PHOS 4 MG/1ML SDV INJ IV SCH ×2 (10:12→21:53)
[2016-11-09] MEDS: SODIUM CHLOR 0.9% PF (SALINE LOCK) 10ML VIAL IV SCH ×2 (10:12→21:54)
[2016-11-09] MEDS: PANTOPRAZOLE SODIUM 40 MG/10 ML VIAL IV SCH (10:12)
[2016-11-09] MEDS ORDERED: NITROGLYCERIN 0.4 MG SL TAB SL PRN (12:45)
[2016-11-09] MEDS: SODIUM CHLORIDE 0.9% 1,000 ML IV SCH (12:45)
[2016-11-09] MEDS ORDERED: HYDROCORTISONE SOD SUCC 100 MG/2ML INJ VIAL IV ONE (12:45)
[2016-11-09] MEDS ORDERED: ONDANSETRON HCL 4 MG/2 ML VIAL IV PRN (12:45)
[2016-11-09] MEDS: PROPOFOL 100 ML IV SCH (15:05)
[2016-11-09] MEDS ORDERED: MIDAZOLAM HCL 1MG/1ML-2 ML VIAL IV PRN (17:00)
[2016-11-09] MEDS: NOREPINEPHRINE BITARTRATE 250 ML IV SCH (22:45)
[2016-11-10] VITALS (102 sets, daily range): BP systolic 80–130; BP diastolic 38–82
[2016-11-10] MEDS: SODIUM CHLORIDE 0.9% 1,000 ML IV SCH ×2 (02:05→14:12)
[2016-11-10 04:11] LABS: Basophils # (auto) 0 uL; Basophils % (auto) 0.1 % (0.0-2.0); CONDITION Y; DEFINITIVE SEE PRINTOUT; Eosinophils # (auto) 0.1 uL; Eosinophils % (auto) 0.5 % (0.0-7.0); Hematocrit 22.8 % (36.0-46.0); Hemoglobin 7.7 g/dL (12.2-16.2); Lymphocytes # (auto) 1.1 uL; Lymphocytes % (auto) 9.9 % (10.0-50.0); Mean Corpuscular Hemoglobin 34.3 pg (28.0-32.0); Mean Corpuscular Volume 100.7 fL (80.0-100.0); Mean Platelet Volume 8.1 fL (7.4-10.4); Monocytes # (auto) 1.2 uL; Monocytes % (auto) 10.6 % (0.0-12.0); Neutrophils # (auto) 8.8 uL; Neutrophils % (auto) 78.9 % (37.0-80.0); Platelet Count (auto) 569 10^3/uL (140-450); Red Cell Distribution Width 15.3 % (11.6-16.0); White Blood Cell 11.2 10^3/uL (4.4-10.8)
[2016-11-10 04:20] LABS: INR 1.85 (0.9-1.15)
[2016-11-10 04:28] LABS: Albumin 1.9 g/dL (3.4-5.0); BUN/Creatinine Ratio 70.8; Bilirubin, Total 0.4 mg/dL (0.2-1.0); Calcium 8.3 mg/dL (8.5-10.1); Magnesium 2.1 mg/dL (1.6-2.6); Total Protein 5.5 g/dL (6.4-8.2)
[2016-11-10 04:33] LABS: Prothrombin Time 20.3 sec (9.37-12.3)
[2016-11-10 04:42] LABS: Potassium 2.9 mmol/L (3.5-5.1)
[2016-11-10] MEDS ORDERED: POTASSIUM CHL 20MEQ/100ML 100 ML IV ONE ×2 (05:34→20:15)
[2016-11-10] MEDS: ACCU-CHEK COMFORT CURVE STRIP VI SCH ×3 (05:48→18:00)
[2016-11-10] MEDS: InsuLIN REG 1unit/0.01ml Soln (100units/ml) SC SCH ×3 (05:49→18:00)
[2016-11-10] MEDS: METOCLOPRAMIDE HCL 5MG/ml INJ 2ml VIAL IV SCH ×3 (05:49→22:32)
[2016-11-10] MEDS: VANCOMYCIN 1GM/250ML D5W 250 ML IV SCH ×2 (05:50→16:43)
[2016-11-10] MEDS: NEOMYCIN-POLYM-HC 1% OTIC(EAR) SOLN 10ML EACH EAR SCH ×3 (05:51→18:00)
[2016-11-10] MEDS: SALINE 0.65 % NASAL SPRAY 45ML BOTTLE EACHNOSTRI SCH ×4 (05:53→22:00)
[2016-11-10] MEDS: POTASSIUM CHL 20MEQ/100ML 100 ML IV SCH ×4 (06:19→22:34)
[2016-11-10 08:43] LABS: Allen Test Yes; Base Excess 0.1 mmol/L (-2.0-2.0); Blood 02Sat 97.2 % (96-100); Blood COHb 0.2 % (0.5-1.5); Blood MetHb 0.1 % (0.0-1.5); HCO3 22.5 mmol/L (22-26.0); HHb 2.8 % (0.0-5.0); MODE VENT - A/C; O2Hb 96.9 % (94.0-97.0); PCO2 28.2 mmHg (35.0-45.0); PCO2(T) 28.2 mmHg (35.0-45.0); PO2 113.5 mmHg (80.0-100.0); PO2(T) 113.5 mmHg (80.0-100.0); Sample Type Arterial
[2016-11-10] MEDS: CEFTRIAXONE SODIUM 2 GM in D5W 5% 50 ML IV SCH ×2 (08:58→22:32)
[2016-11-10] MEDS: SODIUM CHLOR 0.9% PF (SALINE LOCK) 10ML VIAL IV SCH ×2 (10:26→22:00)
[2016-11-10] MEDS: DEXAMETHASONE SOD PHOS 4 MG/1ML SDV INJ IV SCH ×2 (10:33→22:32)
[2016-11-10] MEDS: PANTOPRAZOLE SODIUM 40 MG/10 ML VIAL IV SCH (10:33)
[2016-11-10] MEDS: PROPOFOL 100 ML IV SCH (14:12)
[2016-11-10] MEDS: NOREPINEPHRINE BITARTRATE 250 ML IV SCH (22:45)
[2016-11-11] VITALS (89 sets, daily range): BP systolic 71–132; BP diastolic 38–77
[2016-11-11] MEDS: VANCOMYCIN 1GM/250ML D5W 250 ML IV SCH ×3 (02:00→22:00)
[2016-11-11 04:29] LABS: CONDITION Y; DEFINITIVE SEE PRINTOUT; Hematocrit 23.5 % (36.0-46.0); Mean Corpuscular Hemoglobin 34.1 pg (28.0-32.0); Mean Corpuscular Hgb Conc. 33.9 g/dL (32.0-36.0); Mean Corpuscular Volume 100.7 fL (80.0-100.0); Mean Platelet Volume 7.7 fL (7.4-10.4); Platelet Count (auto) 562 10^3/uL (140-450); Red Cell Distribution Width 15.3 % (11.6-16.0); SUSPECT SEE PRINTOUT; White Blood Cell 12.4 10^3/uL (4.4-10.8)
[2016-11-11 04:46] LABS: INR 1.13 (0.9-1.15); Prothrombin Time 12.3 sec (9.37-12.3)
[2016-11-11 04:51] LABS: Myelocytes % 0; Promyelocytes % 0; Reactive Lymphocytes 0
[2016-11-11 05:10] LABS: Bilirubin, Total 0.4 mg/dL (0.2-1.0); Calcium 8.4 mg/dL (8.5-10.1); Magnesium 2.1 mg/dL (1.6-2.6); Potassium 3.9 mmol/L (3.5-5.1); Total Protein 5.6 g/dL (6.4-8.2)
[2016-11-11] MEDS: SODIUM CHLORIDE 0.9% 1,000 ML IV SCH (06:04)
[2016-11-11] MEDS: InsuLIN REG 1unit/0.01ml Soln (100units/ml) SC SCH ×4 (06:05→23:47)
[2016-11-11] MEDS: NEOMYCIN-POLYM-HC 1% OTIC(EAR) SOLN 10ML EACH EAR SCH ×5 (06:05→23:44)
[2016-11-11] MEDS: ACCU-CHEK COMFORT CURVE STRIP VI SCH ×4 (06:05→23:47)
[2016-11-11] MEDS: SALINE 0.65 % NASAL SPRAY 45ML BOTTLE EACHNOSTRI SCH ×4 (06:05→21:12)
[2016-11-11] MEDS: METOCLOPRAMIDE HCL 5MG/ml INJ 2ml VIAL IV SCH (06:07)
[2016-11-11 06:28] LABS: Base Excess -0.6 mmol/L (-2.0-2.0); Blood 02Sat 97.4 % (96-100); Blood COHb 0.9 % (0.5-1.5); Blood MetHb 0.1 % (0.0-1.5); HCO3 22.1 mmol/L (22-26.0); HHb 2.6 % (0.0-5.0); MODE VENT - A/C; O2Hb 96.4 % (94.0-97.0); PCO2 29.1 mmHg (35.0-45.0); PCO2(T) 29.1 mmHg (35.0-45.0); PO2 109.3 mmHg (80.0-100.0); PO2(T) 109.3 mmHg (80.0-100.0); Sample Type Arterial; pH 7.498 (7.350-7.450)
[2016-11-11 08:04] LABS: Metamyelocytes % 1
[2016-11-11 08:05] LABS: Anisocytosis Slight; Platelet Estimate Increased
[2016-11-11] MEDS: SODIUM CHLOR 0.9% PF (SALINE LOCK) 10ML VIAL IV SCH ×2 (10:25→22:00)
[2016-11-11] MEDS: DEXAMETHASONE SOD PHOS 4 MG/1ML SDV INJ IV SCH ×2 (10:25→22:45)
[2016-11-11] MEDS: PANTOPRAZOLE SODIUM 40 MG/10 ML VIAL IV SCH (10:25)
[2016-11-11] MEDS: CEFTRIAXONE SODIUM 2 GM in D5W 5% 50 ML IV SCH ×2 (10:25→21:12)
[2016-11-11] MEDS ORDERED: DEXTROSE (50%) 50ML SYRG IV PRN (12:30)
[2016-11-11] MEDS ORDERED: DEXAMETHASONE SOD PHOS 4 MG/1ML SDV INJ IV ONE (12:30)
[2016-11-11] MEDS: PROPOFOL 100 ML IV SCH (15:10)
[2016-11-11] MEDS: NOREPINEPHRINE BITARTRATE 250 ML IV SCH (22:45)
[2016-11-12] VITALS (33 sets, daily range): BP systolic 82–134; BP diastolic 40–73
[2016-11-12 03:55] LABS: Basophils # (auto) 0 uL; Basophils % (auto) 0.2 % (0.0-2.0); CONDITION Y; Eosinophils # (auto) 0.1 uL; Eosinophils % (auto) 0.7 % (0.0-7.0); Hematocrit 31.8 % (36.0-46.0); Hemoglobin 10.7 g/dL (12.2-16.2); Lymphocytes # (auto) 0.9 uL; Mean Corpuscular Hemoglobin 32.3 pg (28.0-32.0); Mean Corpuscular Hgb Conc. 33.8 g/dL (32.0-36.0); Mean Corpuscular Volume 95.7 fL (80.0-100.0); Mean Platelet Volume 7.6 fL (7.4-10.4); Monocytes # (auto) 0.6 uL; Monocytes % (auto) 5.3 % (0.0-12.0); Neutrophils # (auto) 9.6 uL; Neutrophils % (auto) 85.8 % (37.0-80.0); Platelet Count (auto) 438 10^3/uL (140-450); Red Cell Distribution Width 18.3 % (11.6-16.0); White Blood Cell 11.2 10^3/uL (4.4-10.8)
[2016-11-12] MEDS: InsuLIN REG 1unit/0.01ml Soln (100units/ml) SC SCH ×4 (05:49→23:57)
[2016-11-12] MEDS: NEOMYCIN-POLYM-HC 1% OTIC(EAR) SOLN 10ML EACH EAR SCH ×4 (05:49→23:57)
[2016-11-12] MEDS: SALINE 0.65 % NASAL SPRAY 45ML BOTTLE EACHNOSTRI SCH ×4 (05:49→22:08)
[2016-11-12] MEDS: ACCU-CHEK COMFORT CURVE STRIP VI SCH ×4 (05:49→23:57)
[2016-11-12 06:07] LABS: Albumin 2.1 g/dL (3.4-5.0); BUN/Creatinine Ratio 39.4; Calcium 8.2 mg/dL (8.5-10.1); Potassium 3.7 mmol/L (3.5-5.1)
[2016-11-12 06:10] LABS: Bilirubin, Total 0.4 mg/dL (0.2-1.0); Total Protein 6.2 g/dL (6.4-8.2)
[2016-11-12] MEDS: VANCOMYCIN 1GM/250ML D5W 250 ML IV SCH ×2 (08:33→17:48)
[2016-11-12] MEDS: SODIUM CHLOR 0.9% PF (SALINE LOCK) 10ML VIAL IV SCH ×2 (10:00→22:08)
[2016-11-12 10:20] LABS: Base Excess 1.7 mmol/L (-2.0-2.0); Blood COHb 0.4 % (0.5-1.5); Blood MetHb 0.1 % (0.0-1.5); HCO3 24.6 mmol/L (22-26.0); MODE VENT - CPAP; O2Hb 96.5 % (94.0-97.0); PO2 99.8 mmHg (80.0-100.0); PO2(T) 99.8 mmHg (80.0-100.0); Pressure Support 8; Sample Type Arterial; Spont Vt 386
[2016-11-12] MEDS: DEXAMETHASONE SOD PHOS 4 MG/1ML SDV INJ IV SCH ×2 (10:40→22:09)
[2016-11-12] MEDS: PANTOPRAZOLE SODIUM 40 MG/10 ML VIAL IV SCH (10:40)
[2016-11-12] MEDS: CEFTRIAXONE SODIUM 2 GM in D5W 5% 50 ML IV SCH ×2 (10:41→20:55)
[2016-11-12] MEDS: ACYCLOVIR SOD 50MG/ML 500 MG in D5W 5% 100 ML IV SCH ×2 (12:15→20:05)
[2016-11-12] MEDS: PROPOFOL 100 ML IV SCH (15:10)
[2016-11-13] VITALS (19 sets, daily range): BP systolic 96–117; BP diastolic 51–72
[2016-11-13 03:13] LABS: Basophils # (auto) 0 uL; Basophils % (auto) 0.3 % (0.0-2.0); CONDITION Y; Eosinophils # (auto) 0.2 uL; Eosinophils % (auto) 1.9 % (0.0-7.0); Hematocrit 35.1 % (36.0-46.0); Hemoglobin 11.8 g/dL (12.2-16.2); Lymphocytes # (auto) 0.6 uL; Lymphocytes % (auto) 4.6 % (10.0-50.0); Mean Corpuscular Hemoglobin 32.3 pg (28.0-32.0); Mean Corpuscular Hgb Conc. 33.6 g/dL (32.0-36.0); Mean Platelet Volume 7.6 fL (7.4-10.4); Monocytes # (auto) 0.1 uL; Monocytes % (auto) 0.5 % (0.0-12.0); Neutrophils # (auto) 11.1 uL; Neutrophils % (auto) 92.7 % (37.0-80.0); Platelet Count (auto) 420 10^3/uL (140-450); Red Cell Distribution Width 17.9 % (11.6-16.0)
[2016-11-13] MEDS: ACYCLOVIR SOD 50MG/ML 500 MG in D5W 5% 100 ML IV SCH ×3 (03:32→20:00)
[2016-11-13 03:37] LABS: Calcium 8.8 mg/dL (8.5-10.1); Potassium 3.7 mmol/L (3.5-5.1)
[2016-11-13] MEDS: VANCOMYCIN 1GM/250ML D5W 250 ML IV SCH ×3 (04:35→23:52)
[2016-11-13] MEDS: CEFTRIAXONE SODIUM 2 GM in D5W 5% 50 ML IV SCH ×2 (09:04→21:34)
[2016-11-13] MEDS: SODIUM CHLOR 0.9% PF (SALINE LOCK) 10ML VIAL IV SCH ×2 (10:00→21:35)
[2016-11-13] MEDS: PANTOPRAZOLE SODIUM 40 MG/10 ML VIAL IV SCH (10:44)
[2016-11-13] MEDS: DEXAMETHASONE SOD PHOS 4 MG/1ML SDV INJ IV SCH (10:44)
[2016-11-13] MEDS ORDERED: MORPHINE SULF INJ 2 MG/ML SYRINGE 1ML IV PRN (11:00)
[2016-11-13] MEDS ORDERED: ONDANSETRON HCL 4 MG/2 ML VIAL IV PRN (11:00)
[2016-11-13] MEDS ORDERED: HYDROcodone-ACET 5/325MG TAB PO PRN (11:00)
[2016-11-13] MEDS ORDERED: LORazepam 2MG/ML-1ML VIAL IV PRN (11:00)
[2016-11-13] MEDS ORDERED: MORPHINE SULFATE 4 MG/ML SYRG IV PRN ×2 (11:00)
[2016-11-13] MEDS: InsuLIN REG 1unit/0.01ml Soln (100units/ml) SC SCH ×3 (12:00→23:52)
[2016-11-13] MEDS: ACCU-CHEK COMFORT CURVE STRIP VI SCH ×3 (12:00→23:52)
[2016-11-13] MEDS: NEOMYCIN-POLYM-HC 1% OTIC(EAR) SOLN 10ML EACH EAR SCH ×4 (12:10→23:52)
[2016-11-13] MEDS: SALINE 0.65 % NASAL SPRAY 45ML BOTTLE EACHNOSTRI SCH ×3 (12:16→21:34)
[2016-11-14] VITALS (24 sets, daily range): BP systolic 93–130; BP diastolic 47–101
[2016-11-14] MEDS: ACYCLOVIR SOD 50MG/ML 500 MG in D5W 5% 100 ML IV SCH ×3 (03:36→20:30)
[2016-11-14 04:03] LABS: Basophils # (auto) 0 uL; Basophils % (auto) 0.3 % (0.0-2.0); CONDITION Y; Eosinophils # (auto) 0.6 uL; Eosinophils % (auto) 6.1 % (0.0-7.0); Hematocrit 35.5 % (36.0-46.0); Hemoglobin 11.9 g/dL (12.2-16.2); Lymphocytes # (auto) 1.2 uL; Lymphocytes % (auto) 11.7 % (10.0-50.0); Mean Corpuscular Hemoglobin 32.5 pg (28.0-32.0); Mean Corpuscular Hgb Conc. 33.4 g/dL (32.0-36.0); Mean Corpuscular Volume 97.3 fL (80.0-100.0); Mean Platelet Volume 7.6 fL (7.4-10.4); Monocytes # (auto) 0.4 uL; Monocytes % (auto) 3.8 % (0.0-12.0); Neutrophils # (auto) 8.1 uL; Neutrophils % (auto) 78.1 % (37.0-80.0); Platelet Count (auto) 352 10^3/uL (140-450); Red Cell Distribution Width 17.8 % (11.6-16.0); White Blood Cell 10.4 10^3/uL (4.4-10.8)
[2016-11-14 04:21] LABS: BUN/Creatinine Ratio 62.5; Calcium 9.1 mg/dL (8.5-10.1); Potassium 3.2 mmol/L (3.5-5.1)
[2016-11-14] MEDS: ACCU-CHEK COMFORT CURVE STRIP VI SCH ×3 (05:45→17:40)
[2016-11-14] MEDS: NEOMYCIN-POLYM-HC 1% OTIC(EAR) SOLN 10ML EACH EAR SCH ×3 (05:45→18:26)
[2016-11-14] MEDS: InsuLIN REG 1unit/0.01ml Soln (100units/ml) SC SCH ×3 (05:45→17:41)
[2016-11-14] MEDS: SALINE 0.65 % NASAL SPRAY 45ML BOTTLE EACHNOSTRI SCH ×4 (05:45→21:51)
[2016-11-14] MEDS ORDERED: POTASSIUM CHL 20MEQ/100ML 100 ML IV ONE (07:15)
[2016-11-14] MEDS: CEFTRIAXONE SODIUM 2 GM in D5W 5% 50 ML IV SCH ×2 (09:33→21:30)
[2016-11-14] MEDS: PANTOPRAZOLE SODIUM 40 MG/10 ML VIAL IV SCH (09:36)
[2016-11-14] MEDS: SODIUM CHLOR 0.9% PF (SALINE LOCK) 10ML VIAL IV SCH ×2 (09:36→21:51)
[2016-11-14] MEDS: VANCOMYCIN 1GM/250ML D5W 250 ML IV SCH ×2 (10:51→19:52)
[2016-11-14] MEDS ORDERED: POTASSIUM CHL 20 Meq TABLET PO ONE (12:15)
[2016-11-14] MEDS ORDERED: LORazepam 2MG/ML-1ML VIAL IV ONE (12:15)
[2016-11-14] MEDS ORDERED: POTASSIUM CHL 10% (20 MEQ/15ML) ORAL SOLN PO ONE (15:00)
[2016-11-14] MEDS: ACETAMINOPHEN 325 MG TAB PO PRN (17:01)
[2016-11-14] MEDS: BOOST PLUS 8 ounce PO SCH (18:26)
[2016-11-15] VITALS (23 sets, daily range): BP systolic 95–130; BP diastolic 41–81
[2016-11-15] MEDS: ACYCLOVIR SOD 50MG/ML 500 MG in D5W 5% 100 ML IV SCH (03:59)
[2016-11-15 04:43] LABS: Calcium 8.5 mg/dL (8.5-10.1); Potassium 3.3 mmol/L (3.5-5.1)
[2016-11-15 04:45] LABS: BUN/Creatinine Ratio 64.7
[2016-11-15] MEDS: ACCU-CHEK COMFORT CURVE STRIP VI SCH ×5 (06:00→23:56)
[2016-11-15] MEDS: VANCOMYCIN 1GM/250ML D5W 250 ML IV SCH ×2 (06:00→17:30)
[2016-11-15] MEDS: SALINE 0.65 % NASAL SPRAY 45ML BOTTLE EACHNOSTRI SCH ×4 (06:00→22:00)
[2016-11-15] MEDS: NEOMYCIN-POLYM-HC 1% OTIC(EAR) SOLN 10ML EACH EAR SCH ×5 (06:00→23:56)
[2016-11-15] MEDS: InsuLIN REG 1unit/0.01ml Soln (100units/ml) SC SCH ×5 (06:00→23:56)
[2016-11-15] MEDS: BOOST PLUS 8 ounce PO SCH ×3 (08:00→19:03)
[2016-11-15] MEDS: CEFTRIAXONE SODIUM 2 GM in D5W 5% 50 ML IV SCH ×2 (09:19→21:19)
[2016-11-15] MEDS: PANTOPRAZOLE SODIUM 40 MG/10 ML VIAL IV SCH (09:49)
[2016-11-15] MEDS: SODIUM CHLOR 0.9% PF (SALINE LOCK) 10ML VIAL IV SCH ×2 (09:49→22:00)
[2016-11-15] MEDS ORDERED: POTASSIUM CHL 20 Meq TABLET PO ONE (10:30)
[2016-11-15] MEDS ORDERED: TPN PER PHARMACY 0 ML IV SCH (10:45)
[2016-11-15 11:09] LABS: Magnesium 2.2 mg/dL (1.6-2.6)
[2016-11-15] MEDS ORDERED: GADOPENTETATE DIMEGLUMINE (10MMOL/20 ML) VIAL IV ONE (11:12)
[2016-11-15 11:37] LABS: Albumin 2.3 g/dL (3.4-5.0); Bilirubin, Direct 0.2 mg/dL (0-0.2); Bilirubin, Total 0.7 mg/dL (0.2-1.0); Total Protein 6.2 g/dL (6.4-8.2)
[2016-11-15] MEDS ORDERED: POTASSIUM CHL 10% (20 MEQ/15ML) ORAL SOLN GT ONE ×2 (12:30→12:45)
[2016-11-15] MEDS: ACETAMINOPHEN 650 MG RECT SUPP PR PRN (12:33)
[2016-11-15] MEDS: ACYCLOVIR 400 MG TAB PO SCH ×3 (14:22→22:00)
[2016-11-15 18:30] LABS: Urine Bilirubin Negative (Negative); Urine Blood 2+ /uL (Negative); Urine Color Yellow (Yellow); Urine Glucose Normal (Normal); Urine Ketone Negative (Negative); Urine Nitrite Negative (Negative); Urine RBC 2 /hpf (0 - 4); Urine Squamous Epithelial Cell FEW /hpf (<5); Urine Urobilinogen Normal (Negative)
[2016-11-15] MEDS: ACETAMINOPHEN 325 MG TAB PO PRN (19:10)
[2016-11-15] MEDS ORDERED: DEXTROSE (50%) 50ML SYRG IV SCH (20:00)
[2016-11-15] MEDS ORDERED: TPN PER PHARMACY IV NR ×11 (20:00)
[2016-11-15] MEDS: FAMOTIDINE (10MG/ML) 2ML VL IV SCH (22:00)
[2016-11-16] VITALS (23 sets, daily range): BP systolic 92–132; BP diastolic 49–82
[2016-11-16 01:42] LABS: Basophils # (auto) 0.1 uL; Basophils % (auto) 0.5 % (0.0-2.0); CONDITION Y; Eosinophils # (auto) 0.5 uL; Eosinophils % (auto) 5.7 % (0.0-7.0); Hematocrit 33.1 % (36.0-46.0); Hemoglobin 11.1 g/dL (12.2-16.2); Lymphocytes # (auto) 0.8 uL; Lymphocytes % (auto) 7.9 % (10.0-50.0); Mean Corpuscular Hemoglobin 32.4 pg (28.0-32.0); Mean Corpuscular Hgb Conc. 33.7 g/dL (32.0-36.0); Mean Corpuscular Volume 96.2 fL (80.0-100.0); Mean Platelet Volume 7.8 fL (7.4-10.4); Monocytes # (auto) 0.6 uL; Monocytes % (auto) 6.6 % (0.0-12.0); Neutrophils # (auto) 7.6 uL; Neutrophils % (auto) 79.3 % (37.0-80.0); Platelet Count (auto) 277 10^3/uL (140-450); Red Cell Distribution Width 17.9 % (11.6-16.0); White Blood Cell 9.6 10^3/uL (4.4-10.8)
[2016-11-16 01:54] LABS: Albumin 2.1 g/dL (3.4-5.0); BUN/Creatinine Ratio 52.4; Calcium 8.3 mg/dL (8.5-10.1); Potassium 3.6 mmol/L (3.5-5.1)
[2016-11-16 01:57] LABS: Bilirubin, Total 0.5 mg/dL (0.2-1.0); Total Protein 6.1 g/dL (6.4-8.2)
[2016-11-16] MEDS: VANCOMYCIN 1GM/250ML D5W 250 ML IV SCH ×3 (02:14→21:31)
[2016-11-16 02:31] LABS: Phosphorus 1.9 mg/dL (2.5-4.90)
[2016-11-16] MEDS: ACCU-CHEK COMFORT CURVE STRIP VI SCH ×4 (05:34→23:30)
[2016-11-16] MEDS: ACYCLOVIR 400 MG TAB PO SCH ×5 (05:34→21:31)
[2016-11-16] MEDS: NEOMYCIN-POLYM-HC 1% OTIC(EAR) SOLN 10ML EACH EAR SCH ×4 (05:34→23:30)
[2016-11-16] MEDS: InsuLIN REG 1unit/0.01ml Soln (100units/ml) SC SCH ×4 (05:34→23:31)
[2016-11-16] MEDS: SALINE 0.65 % NASAL SPRAY 45ML BOTTLE EACHNOSTRI SCH ×4 (05:34→21:32)
[2016-11-16] MEDS: BOOST PLUS 8 ounce PO SCH ×3 (08:00→18:00)
[2016-11-16] MEDS: CEFTRIAXONE SODIUM 2 GM in D5W 5% 50 ML IV SCH ×2 (08:25→21:31)
[2016-11-16] MEDS: FAMOTIDINE (10MG/ML) 2ML VL IV SCH ×2 (10:05→21:31)
[2016-11-16] MEDS: SODIUM CHLOR 0.9% PF (SALINE LOCK) 10ML VIAL IV SCH ×2 (10:07→21:32)
[2016-11-16] MEDS: ACETAMINOPHEN 325 MG TAB PO PRN (10:07)
[2016-11-16] MEDS ORDERED: SODIUM PHOSPHATES 20 MEQ in SODIUM CHL 0.9% 100 ML IV ONE (10:30)
[2016-11-16] MEDS ORDERED: ACETAMINOPHEN 325 MG TAB PO PRN (13:00)
[2016-11-16] MEDS: ACETAMINOPHEN 650 MG RECT SUPP PR PRN (19:54)
[2016-11-16] MEDS ORDERED: TPN PER PHARMACY IV NR ×10 (20:00)
[2016-11-16] MEDS: FLUCONAZOLE 200MG/100ML 100 ML IV SCH (23:30)
[2016-11-17] VITALS (22 sets, daily range): BP systolic 91–131; BP diastolic 45–78
[2016-11-17] MEDS: FLUCONAZOLE 200MG/100ML 100 ML IV SCH ×2 (00:25→10:06)
[2016-11-17] MEDS: ACETAMINOPHEN 650 MG RECT SUPP PR PRN ×3 (02:01→17:30)
[2016-11-17 04:10] LABS: Basophils # (auto) 0 uL; Basophils % (auto) 0.3 % (0.0-2.0); CONDITION Y; Eosinophils # (auto) 0.4 uL; Eosinophils % (auto) 4.2 % (0.0-7.0); Hematocrit 31.4 % (36.0-46.0); Hemoglobin 10.5 g/dL (12.2-16.2); Lymphocytes # (auto) 0.7 uL; Lymphocytes % (auto) 7.4 % (10.0-50.0); Mean Corpuscular Hemoglobin 32.5 pg (28.0-32.0); Mean Corpuscular Hgb Conc. 33.5 g/dL (32.0-36.0); Mean Corpuscular Volume 96.8 fL (80.0-100.0); Mean Platelet Volume 7.7 fL (7.4-10.4); Monocytes # (auto) 0.8 uL; Monocytes % (auto) 8.8 % (0.0-12.0); Neutrophils # (auto) 7.3 uL; Neutrophils % (auto) 79.3 % (37.0-80.0); Platelet Count (auto) 278 10^3/uL (140-450); Red Cell Distribution Width 17.4 % (11.6-16.0); White Blood Cell 9.3 10^3/uL (4.4-10.8)
[2016-11-17 04:36] LABS: Albumin 1.9 g/dL (3.4-5.0); Alkaline Phosphatase 98 U/L (45-117); Anion Gap 7 (5-15); Aspartate Aminotransferase 17 U/L (15-37); BUN/Creatinine Ratio 66.7; Bilirubin, Total 0.4 mg/dL (0.2-1.0); Blood Urea Nitrogen 10 mg/dL (7-18); Calcium 7.8 mg/dL (8.5-10.1); Carbon Dioxide 27 mmol/L (21-32); Chloride 101 mmol/L (98-107); GFR African American 639 mL/min; GFR Non-African American 528 mL/min; Glucose 160 mg/dL (74-106); Phosphorus 2.7 mg/dL (2.5-4.90); Potassium 3.2 mmol/L (3.5-5.1); Sodium 135 mmol/L (136-145); Total Protein 5.8 g/dL (6.4-8.2)
[2016-11-17] MEDS: NEOMYCIN-POLYM-HC 1% OTIC(EAR) SOLN 10ML EACH EAR SCH ×3 (05:31→17:27)
[2016-11-17] MEDS: SALINE 0.65 % NASAL SPRAY 45ML BOTTLE EACHNOSTRI SCH ×4 (05:31→22:00)
[2016-11-17] MEDS: ACCU-CHEK COMFORT CURVE STRIP VI SCH ×3 (05:32→18:21)
[2016-11-17] MEDS: ACYCLOVIR 400 MG TAB PO SCH ×5 (05:32→22:00)
[2016-11-17] MEDS: InsuLIN REG 1unit/0.01ml Soln (100units/ml) SC SCH ×3 (05:34→18:00)
[2016-11-17] MEDS: VANCOMYCIN 1GM/250ML D5W 250 ML IV SCH ×2 (08:08→18:20)
[2016-11-17] MEDS: BOOST PLUS 8 ounce PO SCH ×3 (08:08→18:20)
[2016-11-17] MEDS: FAMOTIDINE (10MG/ML) 2ML VL IV SCH ×2 (10:06→22:00)
[2016-11-17] MEDS: SODIUM CHLOR 0.9% PF (SALINE LOCK) 10ML VIAL IV SCH ×2 (10:06→22:00)
[2016-11-17] MEDS: CEFTRIAXONE SODIUM 2 GM in D5W 5% 50 ML IV SCH ×2 (11:07→21:00)
[2016-11-17] MEDS: POTASSIUM CHL 20MEQ/100ML 100 ML IV SCH ×2 (11:36→12:30)
[2016-11-17 14:18] LABS: INR 1.15 (0.9-1.15); Partial Thromboplastin Time 28.8 sec (22.64-33.71); Prothrombin Time 12.5 sec (9.37-12.3)
[2016-11-17] MEDS ORDERED: LIDOCAINE 1% HCL (LOCAL ANESTH.) INJ 20ML MDV ONE (14:49)
[2016-11-17] MEDS ORDERED: LATA0.0015 EACHEYE (17:09)
[2016-11-17] MEDS ORDERED: TPN PER PHARMACY IV NR ×10 (20:00)
[2016-11-17] MEDS ORDERED: LATANOPROST 0.005 % OPTH(EYE) SOL 2.5ML EACHEYE SCH ×2 (22:00)
[2016-11-18] VITALS (23 sets, daily range): BP systolic 93–145; BP diastolic 54–82
[2016-11-18 03:46] LABS: Basophils # (auto) 0 uL; Basophils % (auto) 0.4 % (0.0-2.0); CONDITION Y; Eosinophils # (auto) 0.5 uL; Eosinophils % (auto) 6.9 % (0.0-7.0); Hematocrit 32.4 % (36.0-46.0); Hemoglobin 10.9 g/dL (12.2-16.2); Lymphocytes # (auto) 0.5 uL; Lymphocytes % (auto) 6.1 % (10.0-50.0); Mean Corpuscular Hemoglobin 32.5 pg (28.0-32.0); Mean Corpuscular Hgb Conc. 33.5 g/dL (32.0-36.0); Mean Platelet Volume 7.9 fL (7.4-10.4); Monocytes # (auto) 0.9 uL; Monocytes % (auto) 11.8 % (0.0-12.0); Neutrophils # (auto) 5.9 uL; Neutrophils % (auto) 74.8 % (37.0-80.0); Platelet Count (auto) 315 10^3/uL (140-450); Red Cell Distribution Width 18.4 % (11.6-16.0); SUSPECT SEE PRINTOUT; White Blood Cell 7.9 10^3/uL (4.4-10.8)
[2016-11-18 04:12] LABS: BUN/Creatinine Ratio 55.6; Bilirubin, Total 0.4 mg/dL (0.2-1.0); Calcium 8.6 mg/dL (8.5-10.1); Phosphorus 2.9 mg/dL (2.5-4.90); Potassium 3.7 mmol/L (3.5-5.1); Total Protein 6.3 g/dL (6.4-8.2)
[2016-11-18] MEDS: VANCOMYCIN 1GM/250ML D5W 250 ML IV SCH (04:18)
[2016-11-18] MEDS: ACETAMINOPHEN 650 MG RECT SUPP PR PRN (05:40)
[2016-11-18] MEDS: ACCU-CHEK COMFORT CURVE STRIP VI SCH ×3 (05:53→12:00)
[2016-11-18] MEDS: SALINE 0.65 % NASAL SPRAY 45ML BOTTLE EACHNOSTRI SCH ×2 (05:53→11:58)
[2016-11-18] MEDS: ACYCLOVIR 400 MG TAB PO SCH ×2 (05:53→10:38)
[2016-11-18] MEDS: InsuLIN REG 1unit/0.01ml Soln (100units/ml) SC SCH ×3 (05:53→12:00)
[2016-11-18] MEDS: NEOMYCIN-POLYM-HC 1% OTIC(EAR) SOLN 10ML EACH EAR SCH ×3 (05:53→11:58)
[2016-11-18] MEDS: BOOST PLUS 8 ounce PO SCH ×2 (08:00→12:00)
[2016-11-18] MEDS: CEFTRIAXONE SODIUM 2 GM in D5W 5% 50 ML IV SCH (09:00)
[2016-11-18] MEDS: SODIUM CHLOR 0.9% PF (SALINE LOCK) 10ML VIAL IV SCH (10:19)
[2016-11-18] MEDS: FAMOTIDINE (10MG/ML) 2ML VL IV SCH (10:38)
[2016-11-18] MEDS: FLUCONAZOLE 200MG/100ML 100 ML IV SCH (10:38)
[2016-11-18] MEDS ORDERED: D5W/SOD CHL 0.45%/KCL 20MEQ 1,000 ML IV SCH (12:45)
[2016-11-18] MEDS ORDERED: VANCOMYCIN 1GM/250ML D5W 250 ML IV SCH (14:00)
[2016-11-18] MEDS ORDERED: NEOMYCIN-POLYM-HC 1% OTIC(EAR) SOLN 10ML EACH EAR SCH (18:00)
[2016-11-18] MEDS ORDERED: TPN PER PHARMACY IV NR ×10 (20:00)
== END 2016-11-18 14:02 | disposition short-term general hospital (02) | DRG 853 ==
LOC: ER 18:28 → TELE 18:29 → ICU WEST 10-28 08:44
PROVIDERS: ADMIT Internal Medicine; ATTEND Internal Medicine
PROC: 5A1955Z Respiratory Ventilation, Greater than 96 Consecutive Hours (ICD-10-PCS; principal; 2016-10-28)
PROC: 0BH17EZ Insertion of Endotracheal Airway into Trachea, Via Natural or Artificial Opening (ICD-10-PCS; 2016-10-28)
PROC: 09TV4ZZ Resection of Left Ethmoid Sinus, Percutaneous Endoscopic Approach (ICD-10-PCS; 2016-10-30)
PROC: 09TU4ZZ Resection of Right Ethmoid Sinus, Percutaneous Endoscopic Approach (ICD-10-PCS; 2016-10-30)
PROC: 09CX4ZZ Extirpation of Matter from Left Sphenoid Sinus, Percutaneous Endoscopic Approach (ICD-10-PCS; 2016-10-30)
PROC: 09CW4ZZ Extirpation of Matter from Right Sphenoid Sinus, Percutaneous Endoscopic Approach (ICD-10-PCS; 2016-10-30)
PROC: 099600Z Drainage of Left Middle Ear with Drainage Device, Open Approach (ICD-10-PCS; 2016-10-30)
PROC: 09TL4ZZ Resection of Nasal Turbinate, Percutaneous Endoscopic Approach (ICD-10-PCS; 2016-10-30)
PROC: 099 Ear, Nose, Sinus, Drainage (ICD-10-PCS; 2016-10-30)
DX: A40.3 Sepsis due to Streptococcus pneumoniae (principal); I50.31 Acute diastolic (congestive) heart failure; G92 Toxic encephalopathy; J96.00 Acute respiratory failure, unspecified whether with hypoxia or hypercapnia; R40.20 Unspecified coma; G00.1 Pneumococcal meningitis; G00.9 Bacterial meningitis, unspecified; J96.01 Acute respiratory failure with hypoxia; E44.0 Moderate protein-calorie malnutrition; G93.1 Anoxic brain damage, not elsewhere classified; E87.0 Hyperosmolality and hypernatremia; E87.6 Hypokalemia; H70.92 Unspecified mastoiditis, left ear; I27.2 Other secondary pulmonary hypertension; E66.9 Obesity, unspecified; J20.9 Acute bronchitis, unspecified
CPT/HCPCS: 36415; 36569; 36600; 51702; 70450; 70553; 71010; 71250; 71275; 73120; 73560; 76942; 80048; 80053; 80076; 80202; 80307; 80320; 81001; 82040; 82270; 82607; 82805; 82945; 82962; 83605; 83735; 83880; 84100; 84132; 84157; 84439; 84443; 84478; 84484; 85007; 85014; 85018; 85025; 85027; 85379; 85610; 85730; 86850; 86900; 86901; 86920; 87040; 87070; 87075; 87077; 87081; 87086; 87088; 87186; 87205; 87529; 87899; 89051; 92610; 93005; 93306; 93970; 94003; 94640; 95819; 96365; 96372; 96375; C9113; J0330; J0690; J0696; J1100; J1450; J1815; J2001; J2250; J2543; J2704; J3480; J3490; J7060; J7131